=== PATIENT | female | born 1955 | race Caucasian/White ===

== ENCOUNTER 2019-05-11 05:02 | Inpatient (IN) | payer MEDICARE, MEDICAID ==
[~2019-05-11] VITALS: Ht 165.4 cm; Wt 66.7 kg
[2019-05-11] MEDS ORDERED: NS IV 1000 ML 1,000 ML IV SCH ×2 (05:29→08:30)
--- NOTE | 2019-05-11 05:29 | ED Back Pain ---
General Chief Complaint: Back Problems Stated Complaint: LOWER BACK PAIN Nursing Triage Note: left flank pain for 2 days, diagnosed in clinic yesterday with uti and started on antibiotics Nursing Sepsis Screen: No Definite Risk Source of Information: Patient, Family (daughter) Exam Limitations: No Limitations History of Present Illness Date Seen by Provider: May 11, 2019 Time Seen by Provider: 05:15 Initial Comments Patient presents to ER by private conveyance with chief complaint 4 days of left flank and lower left quadrant abdominal pain that is sharp, severe and unrelenting. It is uncomfortable to lay down. She is having nausea and vomiting. No fever but she is having chills. She's having no hematuria or dysuria. Many years ago she had a UTI. She went to her primary care doctor's office and a urinalysis demonstrated no blood but there was bacteria so they put her on Bactrim for 1 day and told her if her pain persisted despite a couple days of antibiotics they would look for a kidney stone. She has no history of kidney stones. She says the pain is intolerable and she has not taken anything for because of a history of high blood pressure. She has a history of emergency C- section many years ago. No other abdominal surgeries. No diarrhea or bloody stools. Allergies and Home Medications Allergies Coded Allergies: Penicillins (Verified Allergy, Unknown, 05/11/19) Patient Home Medication List Home Medication List Reviewed: Yes Review of Systems Constitutional: No chills, No fever, No malaise EENTM: No ear discharge, No ear pain Respiratory: No cough, No short of breath Cardiovascular: No chest pain, No edema Gastrointestinal: LLQ, see HPI (left flank), abdominal pain, nausea, vomiting Genitourinary: No decreased output, No discharge, No dysuria, No frequency Control/STD Prophylaxis: None Musculoskeletal: see HPI, back pain; No joint pain All Other Systems Reviewed Negative Unless Noted: Yes Past Imlurez-Qcbufd-Vpyasf Hx Patient Social History Alcohol Use: Denies Use Recreational Drug Use: No Smoking Status: Current Everyday Smoker Type Used: Cigarettes 2nd Hand Smoke Exposure: No Recent Foreign Travel: No Contact w/Someone Who Travel: No Recent Infectious Disease Expo: No Recent Hopitalizations: No Physical Abuse: No Sexual Abuse: No Mistreated: No Fear: No Seasonal Allergies Seasonal Allergies: No Past Medical History Surgeries: No Respiratory: No Cardiac: Yes Hypertension Neurological: No Genitourinary: Yes Kidney Infection Gastrointestinal: No Musculoskeletal: No Endocrine: No HEENT: No Cancer: No Psychosocial: No Integumentary: No Blood Disorders: No Physical Exam Vital Signs Vital Signs - First Documented 05/11/19 05:18 Temp 35.9 Pulse 86 Resp 16 B/P (MAP) 115/71 (86) Pulse Ox 99 O2 Delivery Room Air Capillary Refill : Less Than 3 Seconds Height, Weight, BMI Height: '" Weight: lbs. oz. kg; 23.00 BMI Method: General Appearance: WD/WN, Mild Distress HEENT: PERRL/EOMI, Pharynx Normal; No Moist Mucous Membranes Neck: Full Range of Motion, Normal Inspection Cardiovascular: Regular Rate, Rhythm, Normal Peripheral Pulses Respiratory: No Accessory Muscle Use, No Respiratory Distress Peripheral Pulses: 2+ Radial Pulses (R), 2+ Radial Pulses (L) Gastrointestinal: Non Tender, Soft Back: No CVA Tenderness, No Vertebral Tenderness Extremity: Normal Capillary Refill, Normal Inspection, No Pedal Edema Neurologic/Psychiatric: Alert, Oriented x3 Skin: Normal Color, Warm/Dry; No Rash Progress/Results/Core Measures Results/Orders Lab Results Laboratory Tests Test 05/11/19 05:45 05/11/19 05:52 05/11/19 07:22 Range/Units White Blood Count 9.3 4.3-11.0 10^3/uL Red Blood Count 4.73 4.35-5.85 10^6/uL Hemoglobin 14.9 11.5-16.0 G/DL Hematocrit 42 35-52 % Mean Corpuscular Volume 89 80-99 FL Mean Corpuscular Hemoglobin 32 25-34 PG Mean Corpuscular Hemoglobin Concent 35 32-36 G/DL Red Cell Distribution Width 11.7 10.0-14.5 % Platelet Count 318 130-400 10^3/uL Mean Platelet Volume 8.5 7.4-10.4 FL Neutrophils (%) (Auto) 76 H 42-75 % Lymphocytes (%) (Auto) 14 12-44 % Monocytes (%) (Auto) 7 0-12 % Eosinophils (%) (Auto) 2 0-10 % Basophils (%) (Auto) 1 0-10 % Neutrophils # (Auto) 7.1 1.8-7.8 X 10^3 Lymphocytes # (Auto) 1.3 1.0-4.0 X 10^3 Monocytes # (Auto) 0.7 0.0-1.0 X 10^3 Eosinophils # (Auto) 0.2 0.0-0.3 10^3/uL Basophils # (Auto) 0.1 0.0-0.1 10^3/uL Sodium Level 124 *L 127 L 135-145 MMOL/L Potassium Level 3.8 3.9 3.6-5.0 MMOL/L Chloride Level 88 L 92 L 98-107 MMOL/L Carbon Dioxide Level 23 24 21-32 MMOL/L Anion Gap 13 11 5-14 MMOL/L Blood Urea Nitrogen 12 11 7-18 MG/DL Creatinine 0.98 0.96 0.60-1.30 MG/DL Estimat Glomerular Filtration Rate 57 58 BUN/Creatinine Ratio 110 11 Glucose Level 110 H 112 H 70-105 MG/DL Calcium Level 9.8 8.7 8.5-10.1 MG/DL Corrected Calcium 9.7 8.5-10.1 MG/DL Total Bilirubin 0.3 0.1-1.0 MG/DL Aspartate Amino Transf (AST/SGOT) 19 5-34 U/L Alanine Aminotransferase (ALT/SGPT) 10 0-55 U/L Alkaline Phosphatase 64 40-136 U/L Total Protein 7.1 6.4-8.2 GM/DL Albumin 4.1 3.2-4.5 GM/DL Urine Color YELLOW Urine Clarity CLEAR Urine pH 7.0 5-9 Urine Specific [place] 1.010 L 1.016-1.022 Urine Protein NEGATIVE NEGATIVE Urine Glucose (UA) NEGATIVE NEGATIVE Urine Ketones NEGATIVE NEGATIVE Urine Nitrite NEGATIVE NEGATIVE Urine Bilirubin NEGATIVE NEGATIVE Urine Urobilinogen 0.2 < = 1.0 MG/DL Urine Leukocyte Esterase NEGATIVE NEGATIVE Urine RBC (Auto) NEGATIVE NEGATIVE Urine RBC NONE /HPF Urine WBC NONE /HPF Urine Squamous Epithelial Cells NONE /HPF Urine Crystals PRESENT H /LPF Urine Amorphous Sediment FEW JUNAID PHOSPHATE H /LPF Urine Bacteria NEGATIVE /HPF Urine Casts NONE /LPF Urine Mucus NONE /LPF Urine Culture Indicated NO Serum Alcohol < 10 <10 MG/DL My Orders Orders - KIKE JACKSON Ua Culture If Indicated (05/11/19 05:22) Ed Iv/Invasive Line Start (05/11/19 05:29) Ns Iv 1000 Ml (Sodium Chloride 0.9%) (05/11/19 05:29) Ct Abd/Pelvis Wo(Kidney Stone) (05/11/19 05:29) Cbc With Automated Diff (05/11/19 05:29) Comprehensive Metabolic Panel (05/11/19 05:29) Ondansetron Injection (Zofran Injectio (05/11/19 05:30) Fentanyl Injection (Sublimaze Injection (05/11/19 05:30) Promethazine Injection (Phenergan Injec (05/11/19 06:15) Promethazine Injection (Phenergan Injec (05/11/19 06:07) Ketorolac Injection (Toradol Injection) (05/11/19 06:45) Ns Iv 500 Ml (Sodium Chloride 0.9%) (05/11/19 06:45) Basic Metabolic Panel (05/11/19 07:06) Ct Head Wo (05/11/19 07:06) Chest 1 View Ap/Pa Only (05/11/19 07:09) Sodium Urine Random (05/11/19 07:21) Creatinine,Urine (05/11/19 07:21) Alcohol (05/11/19 07:31) Osmolality Serum (05/11/19 07:31) Ct Angio Abdomen/Pelv W (05/11/19 07:37) Iohexol Injection (Omnipaque 350 Mg/Ml 1 (05/11/19 07:45) Received Contrast (Hold Metformin- Contr (05/11/19 07:45) Sodium Chloride Flush (Catheter Flush Sy (05/11/19 07:45) Ns (Ivpb) (Sodium Chloride 0.9% Ivpb Bag (05/11/19 07:45) Pantoprazole Injection (Protonix Injecti (05/11/19 08:00) Sodium Chloride 3% (Hypertonic Sodium Ch (05/11/19 08:00) Ns Iv 1000 Ml (Sodium Chloride 0.9%) (05/11/19 08:30) Medications Given in ED Current Medications Medications Dose Ordered Sig/Kathya Route Start Time Stop Time Status Last Admin Dose Admin Fentanyl Citrate 50 mcg ONCE ONCE IVP 05/11/19 05:30 05/11/19 05:31 DC 05/11/19 05:40 50 MCG Iohexol 100 ml ONCE ONCE IV 05/11/19 07:45 05/11/19 07:46 DC 05/11/19 08:06 100 ML Ketorolac Tromethamine 30 mg ONCE ONCE IVP 05/11/19 06:45 05/11/19 06:46 DC 05/11/19 06:43 30 MG Ondansetron HCl 4 mg ONCE ONCE IVP 05/11/19 05:30 05/11/19 05:31 DC 05/11/19 05:40 4 MG Pantoprazole 40 mg ONCE ONCE IV 05/11/19 08:00 05/11/19 08:01 DC 05/11/19 08:10 40 MG Promethazine HCl 25 mg ONCE ONCE IVP 05/11/19 06:15 05/11/19 06:16 DC 05/11/19 06:13 25 MG Sodium Chloride 10 ml NEEDED PRN IV 05/11/19 07:45 05/11/19 08:06 10 ML Sodium Chloride 100 ml ONCE ONCE IV 05/11/19 07:45 05/11/19 07:46 DC 05/11/19 08:06 100 ML Vital Signs/I&O 05/11/19 05:18 Temp 35.9 Pulse 86 Resp 16 B/P (MAP) 115/71 (86) Pulse Ox 99 O2 Delivery Room Air Blood Pressure Mean: 86 Progress Progress Note #1: Time: 05:32 Progress Note Patient is very uncomfortable and rocking like a kidney stone. She does not have any costovertebral tenderness to percussion nor does she have any significant abdominal discomfort to palpation however she rates her pain as severe. Plan to give her 50 g of fentanyl and 4 mg Zofran for her symptoms as well as a liter of saline as she does appear clinically dry. Plan to check labs before giving NSAIDs. We'll obtain a noncontrasted CT scan of the abdomen and pelvis to rule out kidney stones. Other possibilities include organic back pain. She is not exhibiting any rash like shingles. Urinalysis. Progress Note #2: Time: 07:07 Progress Note Patient's sodium is moderate to severely low at 124. She denies having history of low sodium. She's not on hydrochlorothiazide or other diuretics. I suspect that it is probably acute related to her vomiting and abdominal pain. She still having mild nausea. She has only vomited once after receiving the fentanyl and not since Phenergan. She's received 1500 cc of normal saline. Plan to recheck the BMP see with sodium level is before we would consider administering hypertonic saline. Plan to get a CT of the head to rule out space-occupying lesion. CXR for mass. We have discussed inpatient management of hyponatremia and she agrees. Her BP is soft so we instructed her not to take her lisinopril. Plan to get a urine sodium and urine creatinine. Her initial urine was very dilute. Serum osmolality and alcohol ordered but these will be sent out to [place]. In-house radiology read claims thickened gastric lining and duodenum. Some concern for possible atherosclerotic, vascular insult. They recommend CT angiogram. We can obtain that before she goes. Pantoprazole 40 mg IV for her abdominal distress. Progress Note #3: Time: 08:15 Progress Note We did not apparently have any hypertonic saline so we'll just run normal saline at 100 cc an hour. Diagnostic Imaging Diagonstic Imaging: CT (without IV contrast, kidney stone study) Plain Films/CT/US/NM/MRI: abdomen, pelvis Comments Bilateral nonobstructing 2 mm renal calculi. [facility], [place] NAME: CLARA RAY ROMERO [facility] REC#: [id number] PT STATUS: REG ER : 1955 PHYSICIAN: KIKE JACKSON MD ADMIT DATE: 05/11/19/ER FS Signed Date of Exam:05/11/19 CT ABD/PELVIS WO(KIDNEY STONE) PROCEDURE: CT urinary tract, rule out kidney stone. TECHNIQUE: Multiple contiguous axial images were obtained through the abdomen and pelvis without the use of intravenous contrast. Auto Exposure Controls were utilized during the CT exam to meet ALARA standards for radiation dose reduction. INDICATION: Flank pain and abdominal pain. COMPARISON: None. FINDINGS: There is some mild gastric distention. There is some vvrh-or-vgblehly bowel wall thickening involving the duodenum and proximal small bowel. The bowel does not appear dilated. There is no free air, free fluid or lymphadenopathy. The course and caliber of the colon and distal small bowel is unremarkable. Lung bases are clear. The gallbladder and solid organs are grossly unremarkable. Bilateral renal cysts are present. There is no hydronephrosis or hydroureter. Single nonobstructive stone is seen in the mid aspect of the left kidney measuring 3 mm. Distal ureters and urinary bladder normal. Uterus is intact. The appendix is normal. No hernia identified. Osseous structures are age-appropriate. There is advanced degenerative changes in the lumbar spine. IMPRESSION: 1. Nonspecific gastric distention with thickening of the duodenum and proximal small bowel possibly inflammatory bowel disease. There is some mild atherosclerotic change of the abdominal aorta. However, the origins of the celiac and SMA appear unremarkable. Doubtful this represents a vascular insult but not excluded. Consider postcontrast imaging using CTA technique. 2. Bilateral renal cysts. 3. No free air, free fluid or abscess. Dictated by: Dictated on workstation # [id number] Dict: 05/11/19700 Trans: 05/11/19726 [id number] Interpreted by: ALEXSANDRA WELSH Electronically signed by: ALEXSANDRA WELSH 05/11/19726 Reviewed: Reviewed Night Elver Study, Reviewed by Hi Diagonstic Imaging: CT (noncontrast) Plain Films/CT/US/NM/MRI: head Comments No acute intracranial pathology, mass effect, midline shift, tumor, hemorrhage or fracture. NAME: CLARA RAY [facility] REC#: [id number] PT STATUS: REG ER : 1955 PHYSICIAN: KIKE JACKSON MD ADMIT DATE: 05/11/19/ER FS Signed Date of Exam:05/11/19 CT HEAD WO PROCEDURE: CT head without contrast. TECHNIQUE: Multiple contiguous axial images were obtained through the brain without the use of intravenous contrast. Auto Exposure Controls were utilized during the CT exam to meet ALARA standards for radiation dose reduction. INDICATION: Dizziness and hypotension. COMPARISON: None. FINDINGS: There is mild age related cerebral volume loss and chronic microvascular changes. There is no focus of acute ischemia or hemorrhage. No extra-axial fluid collection is identified. There is no mass. The bony calvarium paranasal sinuses and mastoids are clear. IMPRESSION: No acute intracranial abnormalities. Dictated by: Dictated on workstation # [id number] Dict: 05/11/19724 Trans: 05/11/19725 [facility] [id number] Interpreted by: ALEXSANDRA WELSH Electronically signed by: ALEXSANDRA WELSH 05/11/19725 Reviewed: Reviewed Night Elver Study, Reviewed by Diagonstic Imaging: Xray Plain Films/CT/US/NM/MRI: chest (1v) Comments Unremarkable one view chest. Pending radiology over read. [facility] [place] NAME: CLARA RAY [facility] REC#: [id number] PT STATUS: REG ER : 1955 PHYSICIAN: KIKE JACKSON MD ADMIT DATE: 05/11/19/ER FS Signed Date of Exam:05/11/19 CHEST 1 VIEW AP/PA ONLY Indication: Hypotension. Dizziness. COMPARISON: None. FINDINGS: The heart size is normal. There is no pneumothorax effusion or infiltrate. The lungs are clear. Osseous structures normal. IMPRESSION: Negative chest. Dictated by: Dictated on workstation # [id number] Dict: 05/11/19727 Trans: 05/11/19727 [facility] [id number] Interpreted by: ALEXSANDRA WELSH Electronically signed by: ALEXSANDRA WELSH 05/11/19727 Reviewed: Reviewed by Diagonstic Imaging: CT (angiogram) Plain Films/CT/US/NM/MRI: abdomen, pelvis Comments Abdominal aorta and SMA appear patent with some atherosclerotic changes. Benign- appearing right renal cyst on the superior pole. Thickened appearance to the stomach and duodenum. No appearance of thromboembolism in the visceral arteries. Scoliosis with moderate chronic degenerative changes of the thoracic vertebral spine. Pending radiology over read. Reviewed: Reviewed by Me Departure Communication (Admissions) Time/Spoke to Admitting Phy: 08:05 Discussed case lab, imaging and progress with Dr. Abraham and she agrees to accept the patient to the medical floor. Impression Primary Impression: Acute hyponatremia Additional Impressions: Acute abdominal pain in left flank Multiple renal calculi Disposition: ADMITTED INPATIENT Condition: Stable Admissions Decision to Admit Reason: Admit from ER (General) Decision to Admit/Date: May 11, 2019 Time/Decision to Admit Time: 07:00 Departure-Patient Inst. Referrals: HANY RODRIGUEZ MD (PCP/Family) Primary Care Physician KIKE JACKSON May 11, 2019 05:29
[2019-05-11] MEDS ORDERED: ONDANSETRON 4 MG/2 ML (SDV) Z0FRAN IVP ONE (05:30)
[2019-05-11] MEDS ORDERED: fentaNYL INJECTION 100 MCG/2 ML AMP IVP ONE (05:30)
[2019-05-11 05:58] LABS: EOSINOPHILS % (AUTO) 2 % (0-10); HEMATOCRIT 42 % (35-52); HEMOGLOBIN 14.9 G/DL (11.5-16.0); LYMPHOCYTES % (AUTO) 14 % (12-44); MEAN CORPUSCULAR HEMOGLOBIN 32 PG (25-34); MEAN CORPUSCULAR HGB CONC 35 G/DL (32-36); MEAN CORPUSCULAR VOLUME 89 FL (80-99); MEAN PLATELET VOLUME 8.5 FL (7.4-10.4); MONOCYTES % (AUTO) 7 % (0-12); NEUTROPHILS % (AUTO) 76 % (42-75); PLATELET COUNT 318 10^3/uL (130-400); RED CELL DISTRIBUTION WIDTH 11.7 % (10.0-14.5); WHITE BLOOD COUNT 9.3 10^3/uL (4.3-11.0)
[2019-05-11 05:59] LABS: BASOPHILS # (AUTO) 0.1 10^3/uL (0.0-0.1); BASOPHILS % (AUTO) 1 % (0-10); EOSINOPHILS # (AUTO) 0.2 10^3/uL (0.0-0.3); LYMPHOCYTES # (AUTO) 1.3 X 10^3 (1.0-4.0); MONOCYTES # (AUTO) 0.7 X 10^3 (0.0-1.0); NEUTROPHILS # (AUTO) 7.1 X 10^3 (1.8-7.8)
[2019-05-11 06:06] LABS: BACTERIA,URINE NEGATIVE /HPF; BILIRUBIN,URINE NEGATIVE (NEGATIVE); CLARITY,URINE CLEAR; COLOR,URINE YELLOW; GLUCOSE, URINE (UA) NEGATIVE (NEGATIVE); KETONES,URINE NEGATIVE (NEGATIVE); LEUKOCYTE ESTERASE ,URINE NEGATIVE (NEGATIVE); NITRITE,URINE NEGATIVE (NEGATIVE); PROTEIN,URINE NEGATIVE (NEGATIVE)
[2019-05-11 06:07] LABS: AMORPHOUS SEDIMENT,UR FEW AMOR PHOSPHATE /LPF
[2019-05-11] MEDS ORDERED: PROMETHAZINE INJ 25 MG/ML (PHENERGAN) AMP ONE (06:07)
[2019-05-11] MEDS ORDERED: PROMETHAZINE INJ 25 MG/ML (PHENERGAN) AMP IVP ONE (06:15)
[2019-05-11 06:20] LABS: BILIRUBIN,TOTAL 0.3 MG/DL (0.1-1.0); CALCIUM 9.8 MG/DL (8.5-10.1); CREATININE SERUM 0.98 MG/DL (0.60-1.30)
[2019-05-11 06:21] LABS: ALBUMIN 4.1 GM/DL (3.2-4.5); TOTAL PROTEIN 7.1 GM/DL (6.4-8.2)
[2019-05-11 06:28] LABS: POTASSIUM 3.8 MMOL/L (3.6-5.0)
--- NOTE | 2019-05-11 06:30 | NUR ---
pt laying on the floor because she is hot, asked pt if we could help her to the bed and pt refused.
[2019-05-11] MEDS ORDERED: NS IV 500 ML 500 ML IV SCH (06:45)
[2019-05-11] MEDS ORDERED: KETOROLAC 30 MG/ML VIAL IVP ONE (06:45)
--- NOTE | 2019-05-11 07:11 | Diagnostic Imaging Report ---
PROCEDURE: CT urinary tract, rule out kidney stone. TECHNIQUE: Multiple contiguous axial images were obtained through the abdomen and pelvis without the use of intravenous contrast. Auto Exposure Controls were utilized during the CT exam to meet ALARA standards for radiation dose reduction. INDICATION: Flank pain and abdominal pain. COMPARISON: None. FINDINGS: There is some mild gastric distention. There is some zjtc-ro-dndgobia bowel wall thickening involving the duodenum and proximal small bowel. The bowel does not appear dilated. There is no free air, free fluid or lymphadenopathy. The course and caliber of the colon and distal small bowel is unremarkable. Lung bases are clear. The gallbladder and solid organs are grossly unremarkable. Bilateral renal cysts are present. There is no hydronephrosis or hydroureter. Single nonobstructive stone is seen in the mid aspect of the left kidney measuring 3 mm. Distal ureters and urinary bladder normal. Uterus is intact. The appendix is normal. No hernia identified. Osseous structures are age-appropriate. There is advanced degenerative changes in the lumbar spine. IMPRESSION: 1. Nonspecific gastric distention with thickening of the duodenum and proximal small bowel possibly inflammatory bowel disease. There is some mild atherosclerotic change of the abdominal aorta. However, the origins of the celiac and SMA appear unremarkable. Doubtful this represents a vascular insult but not excluded. Consider postcontrast imaging using CTA technique. 2. Bilateral renal cysts. 3. No free air, free fluid or abscess. Dictated by: Dictated on workstation # [id number]
--- NOTE | 2019-05-11 07:28 | Diagnostic Imaging Report ---
PROCEDURE: CT head without contrast. TECHNIQUE: Multiple contiguous axial images were obtained through the brain without the use of intravenous contrast. Auto Exposure Controls were utilized during the CT exam to meet ALARA standards for radiation dose reduction. INDICATION: Dizziness and hypotension. COMPARISON: None. FINDINGS: There is mild age related cerebral volume loss and chronic microvascular changes. There is no focus of acute ischemia or hemorrhage. No extra-axial fluid collection is identified. There is no mass. The bony calvarium paranasal sinuses and mastoids are clear. IMPRESSION: No acute intracranial abnormalities. Dictated by: Dictated on workstation # [id number]
--- NOTE | 2019-05-11 07:30 | Diagnostic Imaging Report ---
Indication: Hypotension. Dizziness. COMPARISON: None. FINDINGS: The heart size is normal. There is no pneumothorax effusion or infiltrate. The lungs are clear. Osseous structures normal. IMPRESSION: Negative chest. Dictated by: Dictated on workstation # [id number]
[2019-05-11] MEDS ORDERED: CATHETER FLUSH 10 ML SYR IV PRN ×2 (07:45→10:30)
[2019-05-11] MEDS ORDERED: NS 100 ML (IVPB) BAG IV ONE (07:45)
[2019-05-11] MEDS ORDERED: IOHEXOL 350 MG/ML 100 ML (OMNIPAQUE 350) VIAL IV ONE (07:45)
[2019-05-11] MEDS ORDERED: HOLD METFORMIN - RECEIVED CONTRAST 20 ML VIAL IV SCH (07:45)
[2019-05-11 07:57] LABS: CALCIUM 8.7 MG/DL (8.5-10.1); CREATININE SERUM 0.96 MG/DL (0.60-1.30); POTASSIUM 3.9 MMOL/L (3.6-5.0)
[2019-05-11] MEDS ORDERED: SODIUM CHLORIDE 3% 500 ML IV ONE (08:00)
[2019-05-11] MEDS ORDERED: PANTOPRAZOLE 40 MG (PROTONIX) VIAL IV ONE (08:00)
--- NOTE | 2019-05-11 08:52 | Diagnostic Imaging Report ---
PROCEDURE: CT angiography abdomen and pelvis with intravenous contrast. TECHNIQUE: Multiple contiguous axial images were obtained through the abdomen and pelvis after the uneventful bolus administration of intravenous contrast. Sagittal and coronal MIP reconstructions with then performed. DATE: May 11, 2019. COMPARISON: CT abdomen and pelvis without contrast May 11, 2019. INDICATION: 63-year-old female, atherosclerotic disease and evaluation for arterial patency. Abdominal pain. FINDINGS: The visualized portions of the lung bases are clear. The heart is not enlarged. There is no identified pericardial effusion. There are atherosclerotic calcifications. The celiac axis is widely patent. The superior mesenteric artery is widely patent. The right renal artery is widely patent. There is atherosclerotic disease involving the proximal aspect of the left renal artery. There is visually estimated 50% narrowing of the origin of the left renal artery. There are 2 left renal arteries present. The inferior mesenteric artery is patent. The abdominal aorta is normal in caliber. There is no identified arterial occlusion within the included field of view of imaging. There is no evidence of aortic dissection. The liver is unremarkable in size and contour. There is no identified liver lesion. The main, right, and left portal veins are patent. The gallbladder is unremarkable. There is no intrahepatic or extrahepatic bile duct dilation. The main pancreatic duct is not abnormally dilated. Unremarkable appearance of the pancreatic parenchyma. The spleen is normal in size. The adrenal glands are unremarkable. There are multiple bilateral low-attenuation renal lesions. There is a low-attenuation lesion in the right kidney on axial image 73 which measures 1.4 cm in size which has an internal attenuation measurement of 40 Hounsfield units. This measures approximately 26 Hounsfield units on earlier noncontrast examination. This is an indeterminate amount of contrast enhancement. This lesion cannot be definitively characterized as a benign cyst. The additional low-attenuation renal lesions are consistent with benign cysts. The urinary collecting systems are not distended. There is no identified renal or ureteral stone. The urinary bladder is unremarkable. There is mucosal enhancement and mild wall thickening at the level of the distal sigmoid colon. There is additional mild wall thickening of the more proximal aspect of the sigmoid colon. There is somewhat prominent mucosal enhancement of the stomach and very mild wall thickening of the distal stomach. There is wall thickening of the duodenum. There is no pneumatosis. There is no portal venous gas. There is no free intraperitoneal air. There is no drainable fluid collection. There is no identified abnormally enlarged lymph node in the abdomen or pelvis which meets CT size criteria for adenopathy. There are multilevel severe degenerative changes of the spine. There is no identified acute bony abnormality. IMPRESSION: CT ABDOMEN AND PELVIS. 1. Atherosclerotic disease without arterial occlusion. There is approximately 50% narrowing of the origin of the most proximally located left renal artery. There are 2 left renal arteries present. 2. Mild wall thickening of the distal stomach with somewhat prominent mucosal enhancement of the stomach, duodenal wall thickening, and abnormal wall thickening of the sigmoid colon. This potentially could relate to a multifocal infectious or inflammatory gastritis, duodenitis, and/or colitis. No evidence of ischemic colitis. 3. Technically indeterminate right renal lesion measuring 1.4 cm in size. Dictated by: Dictated on workstation # [id number]
[2019-05-11] MEDS ORDERED: HYDROcodone/APAP 5 MG/325 MG (LORTAB) TAB PO ONE (09:15)
--- NOTE | 2019-05-11 09:27 | NUR ---
Report from Reina. RN at this time. This RN will assume care of this patient when she arrives to this floor
[2019-05-11 10:00] VITALS: BP 110/69
[2019-05-11] MEDS ORDERED: fentaNYL INJECTION 100 MCG/2 ML AMP IV PRN (10:30)
[2019-05-11] MEDS ORDERED: KETOROLAC 15 MG/ML VIAL IV PRN (10:30)
[2019-05-11] MEDS ORDERED: HYDROcodone/APAP 5 MG/325 MG (LORTAB) TAB PO PRN (10:30)
[2019-05-11] MEDS ORDERED: ACETAMINOPHEN 325 MG TABLET PO PRN (10:30)
[2019-05-11] MEDS ORDERED: PANTOPRAZOLE 40 MG (PROTONIX) TAB PO SCH (10:30)
[2019-05-11] MEDS ORDERED: ONDANSETRON 4 MG/2 ML (SDV) Z0FRAN IV PRN (10:30)
[2019-05-11] MEDS ORDERED: PROMETHAZINE INJ 25 MG/ML (PHENERGAN) AMP IV PRN (10:30)
[2019-05-11] MEDS ORDERED: KETO5DRO14 OU (11:16)
[2019-05-11] MEDS ORDERED: ACET-2267 PO (11:16)
[2019-05-11] MEDS ORDERED: SULF1TAB35 PO (11:16)
[2019-05-11] MEDS ORDERED: IBUP-30 PO (11:16)
[2019-05-11] MEDS ORDERED: LISI-552 PO (11:16)
--- NOTE | 2019-05-11 11:16 | NUR ---
PATIENT HAD HER PRESCRIPTION MEDICATION BOTTLES HERE WITH HER. WE WENT OVER HOW SHE TAKES THEM. SHE TAKES TYLENOL AND 1 ADVIL OTC PRN. BOTTLES SHE HAS WITH HER FROM [facility] IN [place]: 05-10-19 SEPTRA DS BID #6 04-24-19 KETOROLAC 0.5% DROPS 1 DROP OU QID X 30 DAYS 04-20-19 LISINOPRIL 20MG DAILY #30
--- NOTE | 2019-05-11 11:24 | History & Physical ---
HPI History of Present Illness: Left back pain from flank to low back, starting Wednesday. Went to clinic yesterday and had UA negative for blood but with some bacteria, got antibiotics which she started, but early this am around 3, she was having severe enough pain to go to the ER. Was slightly naseous during that time but hadn't vomited until she got fentanyl here. Fentanyl did help with pain, but she is bothered by the vomiting and she also felt dizzy. Hydrocodone didn't seem to help. Denies fever. Source: patient, family Date seen by provider: May 11, 2019 Time Seen by Provider: 11:21 Attending Physician Shilpa Abraham MD PCP Nelson Mendez MD Consult Date of Admission May 11, 2019 at 08:19 Home Medications Home Medications Reviewed patient Home Medication Reconciliation performed by pharmacy medication reconciliations community service technician and/or nursing. Patients Allergies have been reviewed. Allergies Coded Allergies: Penicillins (Verified Allergy, Unknown, 05/11/19) [id number] Hx Patient Social History Alcohol Use: Denies Use Recreational Drug Use: No Smoking Status: Current Everyday Smoker Type Used: Cigarettes 2nd Hand Smoke Exposure: No Recent Foreign Travel: No Contact w/other who traveled: No Recent Hopitalizations: No Recent Infectious Disease Expo: No Past Medical History PMHx: HTN Retinal hemorrhages/macular degeneration Chronic sinusitis SurgHx: Tonsillectomy C section Family Medical History Significant Family History: Asthma Review of Systems ([facility]) Constitutional: dizziness; No fever; malaise EENTM: nose congestion Respiratory: cough (mild); No short of breath Cardiovascular: No chest pain Gastrointestinal: No abdominal pain, No constipation; diarrhea (loose since Wednesday), nausea, vomiting Genitourinary: No dysuria Musculoskeletal: see HPI Skin: No rash Reviewed Test Results Reviewed Test Results Lab Laboratory Tests Test 05/11/19 05:45 05/11/19 05:52 05/11/19 07:22 05/11/19 10:35 Range/Units White Blood Count 9.3 4.3-11.0 10^3/uL Red Blood Count 4.73 4.35-5.85 10^6/uL Hemoglobin 14.9 11.5-16.0 G/DL Hematocrit 42 35-52 % Mean Corpuscular Volume 89 80-99 FL Mean Corpuscular Hemoglobin 32 25-34 PG Mean Corpuscular Hemoglobin Concent 35 32-36 G/DL Red Cell Distribution Width 11.7 10.0-14.5 % Platelet Count 318 130-400 10^3/uL Mean Platelet Volume 8.5 7.4-10.4 FL Neutrophils (%) (Auto) 76 H 42-75 % Lymphocytes (%) (Auto) 14 12-44 % Monocytes (%) (Auto) 7 0-12 % Eosinophils (%) (Auto) 2 0-10 % Basophils (%) (Auto) 1 0-10 % Neutrophils # (Auto) 7.1 1.8-7.8 X 10^3 Lymphocytes # (Auto) 1.3 1.0-4.0 X 10^3 Monocytes # (Auto) 0.7 0.0-1.0 X 10^3 Eosinophils # (Auto) 0.2 0.0-0.3 10^3/uL Basophils # (Auto) 0.1 0.0-0.1 10^3/uL Sodium Level 124 *L 127 L 125 *L 135-145 MMOL/L Potassium Level 3.8 3.9 3.6-5.0 MMOL/L Chloride Level 88 L 92 L 98-107 MMOL/L Carbon Dioxide Level 23 24 21-32 MMOL/L Anion Gap 13 11 5-14 MMOL/L Blood Urea Nitrogen 12 11 7-18 MG/DL Creatinine 0.98 0.96 0.60-1.30 MG/DL Estimat Glomerular Filtration Rate 57 58 BUN/Creatinine Ratio 110 11 Glucose Level 110 H 112 H 70-105 MG/DL Calcium Level 9.8 8.7 8.5-10.1 MG/DL Corrected Calcium 9.7 8.5-10.1 MG/DL Total Bilirubin 0.3 0.1-1.0 MG/DL Aspartate Amino Transf (AST/SGOT) 19 5-34 U/L Alanine Aminotransferase (ALT/SGPT) 10 0-55 U/L Alkaline Phosphatase 64 40-136 U/L Total Protein 7.1 6.4-8.2 GM/DL Albumin 4.1 3.2-4.5 GM/DL Urine Color YELLOW Urine Clarity CLEAR Urine pH 7.0 5-9 Urine Specific [place] 1.010 L 1.016-1.022 Urine Protein NEGATIVE NEGATIVE Urine Glucose (UA) NEGATIVE NEGATIVE Urine Ketones NEGATIVE NEGATIVE Urine Nitrite NEGATIVE NEGATIVE Urine Bilirubin NEGATIVE NEGATIVE Urine Urobilinogen 0.2 < = 1.0 MG/DL Urine Leukocyte Esterase NEGATIVE NEGATIVE Urine RBC (Auto) NEGATIVE NEGATIVE Urine RBC NONE /HPF Urine WBC NONE /HPF Urine Squamous Epithelial Cells NONE /HPF Urine Crystals PRESENT H /LPF Urine Amorphous Sediment FEW JUNAID PHOSPHATE H /LPF Urine Bacteria NEGATIVE /HPF Urine Casts NONE /LPF Urine Mucus NONE /LPF Urine Culture Indicated NO Serum Alcohol < 10 <10 MG/DL Radiology CT abdomen: IMPRESSION: 1. Nonspecific gastric distention with thickening of the duodenum and proximal small bowel possibly inflammatory bowel disease. There is some mild atherosclerotic change of the abdominal aorta. However, the origins of the celiac and SMA appear unremarkable. Doubtful this represents a vascular insult but not excluded. Consider postcontrast imaging using CTA technique. 2. Bilateral renal cysts. 3. No free air, free fluid or abscess. CTA abdomen: IMPRESSION: CT ABDOMEN AND PELVIS. 1. Atherosclerotic disease without arterial occlusion. There is approximately 50% narrowing of the origin of the most proximally located left renal artery. There are 2 left renal arteries present. 2. Mild wall thickening of the distal stomach with somewhat prominent mucosal enhancement of the stomach, duodenal wall thickening, and abnormal wall thickening of the sigmoid colon. This potentially could relate to a multifocal infectious or inflammatory gastritis, duodenitis, and/or colitis. No evidence of ischemic colitis. 3. Technically indeterminate right renal lesion measuring 1.[address] head: No acute intracranial abnormalities CXR: No acute abnormalities Physical Exam-([facility]) Physical Exam Vital Signs VS - Last 72 Hours, by Label 05/11/19 05/11/19 05/11/19 05/11/19 05:18 09:15 10:00 12:00 Temp 35.9 35.9 35.9 36.0 Pulse 86 84 84 72 Resp 16 16 16 18 B/P (MAP) 115/71 (86) 110/69 (86) 110/69 116/74 (88) Pulse Ox 99 99 99 98 O2 Delivery Room Air Room Air Room Air Nasal Cannula 05/11/19 14:13 Pulse Ox 99 O2 Delivery Room Air Capillary Refill : Less Than 3 Seconds General Appearance: mild distress (appears in pain) Respiratory: lungs clear, normal breath sounds, no respiratory distress Cardiovascular: regular rate, rhythm, no murmur Gastrointestinal: normal bowel sounds, non tender, soft Neurologic/Psychiatric: alert, normal mood/affect Skin: normal color, warm/dry Assessment/Plan Assessment/Plan Admission Status: Inpatient Order (span 2 midnights) Reason for Inpatient Admission: Marked hyponatremia requiring replacement and work-up. (1) Colitis Status: Acute Assessment & Plan: Suspect given loose stools and CT findings, will start cipro/flagyl. (2) Acute abdominal pain in left flank Status: Acute Assessment & Plan: CT abdomen without clear explanation, possibly related to colitis. Fentanyl made her sick, will try morphine. (3) Acute hyponatremia Status: Acute Assessment & Plan: Unclear after further discussion whether acute- family notes that she had been recommended low salt diet in October when dx with HTN and she has eliminated salt altogether. Asymptomatic, will not use further hypertonic saline for now. Serum osmolality, urine osmolality and sodium pending. CXR and CT head okay. (4) DVT prophylaxis Status: Acute Assessment & Plan: Enoxaparin Clinical Quality Measures DVT/VTE Risk/Contraindication: Risk Factor Score Per Nursin RFS Level Per Nursing on Admit: 4+=Very High SHILPA ABRAHAM MD May 11, 2019 11:24
[2019-05-11 12:00] VITALS: BP 116/74
[2019-05-11 16:00] VITALS: BP 110/70
[2019-05-11] MEDS ORDERED: morphine INJ 4 MG/ML 1 ML (VIAL/SYRINGE) IV PRN (16:00)
[2019-05-11] MEDS ORDERED: morphine INJ 10 MG/ML 1ML (SYR OR VIAL) IVP PRN (16:00)
[2019-05-11] MEDS: NS IV 1000 ML 1,000 ML IV SCH ×2 (16:23→20:39)
[2019-05-11] MEDS ORDERED: NON-FORMULARY MEDICATION 1 EA EA (Ketorolac Tromethamine 1 DROP) OU SCH (17:00)
[2019-05-11] MEDS: metroNIDAZOLE 500MG/100ML IVPB 100 ML IV SCH (17:56)
[2019-05-11 20:00] VITALS: BP 125/78
--- NOTE | 2019-05-11 20:40 | NUR ---
PT REFUSED LOVENOX.
[2019-05-11] MEDS: ENOXAPARIN 40 MG/0.4 ML (LOVENOX) SYR SQ SCH ×2 (20:49→20:51)
[2019-05-11] MEDS: CIPROFLOXACIN IV 400MG/200ML 200 ML IV SCH (20:49)
[2019-05-11] MEDS: FAMOTIDINE 20 MG (PEPCID) TABLET PO SCH (20:49)
[2019-05-12] VITALS: BP 111/61
[2019-05-12] MEDS: metroNIDAZOLE 500MG/100ML IVPB 100 ML IV SCH ×2 (02:19→09:11)
[2019-05-12 04:00] VITALS: BP 110/68
[2019-05-12] MEDS: NS IV 1000 ML 1,000 ML IV SCH (05:05)
[2019-05-12 05:37] LABS: BASOPHILS % (AUTO) 0 % (0-10); EOSINOPHILS # (AUTO) 0.1 10^3/uL (0.0-0.3); EOSINOPHILS % (AUTO) 1 % (0-10); HEMATOCRIT 37 % (35-52); HEMOGLOBIN 12.7 G/DL (11.5-16.0); LYMPHOCYTES % (AUTO) 14 % (12-44); MEAN CORPUSCULAR HEMOGLOBIN 31 PG (25-34); MEAN CORPUSCULAR HGB CONC 35 G/DL (32-36); MEAN CORPUSCULAR VOLUME 90 FL (80-99); MEAN PLATELET VOLUME 8.4 FL (7.4-10.4); MONOCYTES # (AUTO) 0.7 X 10^3 (0.0-1.0); MONOCYTES % (AUTO) 9 % (0-12); NEUTROPHILS # (AUTO) 5.7 X 10^3 (1.8-7.8); NEUTROPHILS % (AUTO) 76 % (42-75); PLATELET COUNT 301 10^3/uL (130-400); RED CELL DISTRIBUTION WIDTH 12.3 % (10.0-14.5); WHITE BLOOD COUNT 7.5 10^3/uL (4.3-11.0)
[2019-05-12 05:52] LABS: CALCIUM 8.5 MG/DL (8.5-10.1); CREATININE SERUM 1.04 MG/DL (0.60-1.30); POTASSIUM 4.5 MMOL/L (3.6-5.0)
[2019-05-12 08:14] VITALS: BP 131/75
[2019-05-12] MEDS: CIPROFLOXACIN IV 400MG/200ML 200 ML IV SCH ×2 (08:55→09:09)
[2019-05-12] MEDS: FAMOTIDINE 20 MG (PEPCID) TABLET PO SCH (08:57)
[2019-05-12] MEDS ORDERED: PANTOPRAZOLE 40 MG (PROTONIX) TAB PO SCH (09:00)
--- NOTE | 2019-05-12 09:02 | NUR ---
Patient refused 0900 medications. States she's "just tired of being pumped full of stuff". I explained each medication and reason it had been prescribed. Patient is very anxious to be discharged.
[2019-05-12] MEDS ORDERED: CIPR-225 PO (09:55)
[2019-05-12] MEDS ORDERED: METR500T PO (09:55)
--- NOTE | 2019-05-12 09:57 | Discharge Instructions ---
Discharge [facility] Discharge Medications New, Converted or Re-Newed RX: Transmitted to Pharmacy New Medications: Ciprofloxacin HCl (Cipro) 500 Mg Tablet 500 MG PO BID, #14 TAB 0 Refills Metronidazole (Flagyl) 500 Mg Tablet 500 MG PO TID, #21 TAB 0 Refills Continued Medications: Acetaminophen (Tylenol Extra Strength) 500 Mg Tablet 500-1000 MG PO Q4H PRN for PAIN-MILD (1-4), TAB Ibuprofen (Advil) 200 Mg Tablet 200 MG PO Q8H PRN for PAIN-MILD (1-4), TAB Ketorolac Tromethamine (Ketorolac Tromethamine) 5 Ml Drops 1 DROP OU QID, EA Lisinopril (Lisinopril) 20 Mg Tablet 20 MG PO DAILY, TAB Discontinued Medications: Sulfamethoxazole/Trimethoprim (Bactrim Ds Tablet) 1 Each Tablet 1 TAB PO BID for 3 Days, TAB 3 DAY SUPPLY FILLED 05-10-19 Patient Instructions Patient Instructions: Follow up with Ivanna Mcdowell on 05/17 at 1 pm. Activity & Diet Discharge Diet: Regular Diet Activity as Tolerated: Yes Orders-Post D/C & Referrals Pneu Vac Indicated: Yes Copy Copies To 1: MD SHERMAN Arenas,BRENDON Joiner MD May 12, 2019 09:57
--- NOTE | 2019-05-12 10:01 | Discharge Summary ---
Discharge Summary Hospital Course Problems Reviewed?: Yes Problems/Diagnosis: (1) Colitis Status: Acute Assessment & Plan: Suspect given loose stools and CT findings, will start cipro/flagyl. 05/12 markedly improved, discharged on cipro and flagyl PO, recommend colonoscopy when acute illness improved. (2) Acute abdominal pain in left flank Status: Acute Assessment & Plan: CT abdomen without clear explanation, possibly related to colitis. Fentanyl made her sick, will try morphine. 05/12 markedly improved, possibly was related to colitis. (3) Acute hyponatremia Status: Acute Assessment & Plan: Unclear after further discussion whether acute- family notes that she had been recommended low salt diet in October when dx with HTN and she has eliminated salt altogether. Asymptomatic, will not use further hypertonic saline for now. Serum osmolality, urine osmolality and sodium pending. CXR and CT head okay. 05/12 improved (130), discussed not restricting sodium for now (was at 400 mg per day per her report) and avoiding excess fluid intake. Serum osmolality and urine osmolality and sodium pending at d/c. Hospital Course Date of Admission: May 11, 2019 at 08:19 Admission Diagnosis : Family Physician/Provider: Nelson Mendez MD Date of Discharge: 05/12/19 Discharge Diagnosis: See problem list Hospital Course: See problem list Labs and Pending Lab Test: Laboratory Tests 05/11/19 10:35: Sodium Level 125*L 05/11/19 14:20: Sodium Level 127L 05/12/19 05:15: Sodium Level 130L, White Blood Count 7.5, Red Blood Count 4.07L, Hemoglobin 12.7, Hematocrit 37, Mean Corpuscular Volume 90, Mean Corpuscular Hemoglobin 31, Mean Corpuscular Hemoglobin Concent 35, Red Cell Distribution Width 12.3, Platelet Count 301, Mean Platelet Volume 8.4, Neutrophils (%) (Auto) 76H, Lymphocytes (%) (Auto) 14, Monocytes (%) (Auto) 9, Eosinophils (%) (Auto) 1, Basophils (%) (Auto) 0, Neutrophils # (Auto) 5.7, Lymphocytes # (Auto) 1.0, Monocytes # (Auto) 0.7, Eosinophils # (Auto) 0.1, Basophils # (Auto) 0.0, Potassium Level 4.5, Chloride Level 102, Carbon Dioxide Level 19L, Anion Gap 9, Blood Urea Nitrogen 11, Creatinine 1.04, Estimat Glomerular Filtration Rate 53, BUN/Creatinine Ratio 11, Glucose Level 81, Calcium Level 8.5 Home Meds Active Flagyl (Metronidazole) 500 Mg Tablet 500 Mg PO TID Cipro (Ciprofloxacin HCl) 500 Mg Tablet 500 Mg PO BID Reported Advil (Ibuprofen) 200 Mg Tablet 200 Mg PO Q8H PRN Tylenol Extra Strength (Acetaminophen) 500 Mg Tablet 500-1,000 Mg PO Q4H PRN Bactrim Ds Tablet (Sulfamethoxazole/Trimethoprim) 1 Each Tablet 1 Tab PO BID 3 Days 3 DAY SUPPLY FILLED 05-10-19 Lisinopril 20 Mg Tablet 20 Mg PO DAILY Ketorolac Tromethamine 5 Ml Drops 1 Drop OU QID Assessment/Pt DC Instructions See above Orders-Post D/C & Referrals Pneu Vac Indicated: Yes Discharge Physical Examination Allergies: Coded Allergies: Penicillins (Verified Allergy, Unknown, 05/11/19) General Appearance: No Apparent Distress, WD/WN Respiratory: Lungs Clear, Normal Breath Sounds Cardiovascular: Regular Rate, Rhythm, No Murmur Skin: Normal Color, Warm/Dry Neurologic/Psychiatric: Alert, No Motor/Sensory Deficits Copy Copies To 1: Nelson Mendez MD Clinical Quality Measures DVT/VTE Risk/Contraindication: Risk Factor Score Per Nursin RFS Level Per Nursing on Admit: 4+=Very High BRENDON WHITAKER MD May 12, 2019 10:01
[2019-05-12 11:19] VITALS: BP 132/85
== END 2019-05-12 12:16 | disposition home or self-care (01) | DRG 641 ==
LOC: ER FS 05:08 → 4TH 08:19
PROVIDERS: ADMIT Family Medicine; ATTEND Family Medicine
DX: E87.1 Hypo-osmolality and hyponatremia (principal); F17.210 Nicotine dependence, cigarettes, uncomplicated; I10 Essential (primary) hypertension; H35.30 Unspecified macular degeneration; J32.8 Other chronic sinusitis; K52.9 Noninfective gastroenteritis and colitis, unspecified
CPT/HCPCS: 36415; 70450; 71045; 74174; 74176; 80048; 80053; 80320; 81000; 82570; 83930; 84295; 84300; 85025

== ENCOUNTER → 2019-06-19 | Outpatient (CLI) | payer MEDICARE, MEDICAID ==
[~2019-06-19] MED LIST: ACET-2267 PO; CIPR-225 PO; IBUP-30 PO; KETO5DRO14 OU; LISI-552 PO; METR500T PO; SULF1TAB35 PO
--- NOTE | 2019-06-19 11:26 | Diagnostic Imaging Report ---
PROCEDURE: CT abdomen and pelvis without contrast. TECHNIQUE: Multiple contiguous axial images were obtained through the abdomen and pelvis without the use of intravenous contrast. Auto Exposure Controls were utilized during the CT exam to meet ALARA standards for radiation dose reduction. INDICATION: Nephrolithiasis and renal lesion. COMPARISON: Comparison made with prior examination 05/11/2019. FINDINGS: The heart size is normal. Lung bases are clear. Liver is normal in size without focal lesions. Gallbladder is unremarkable. There is no biliary duct dilatation. Spleen is normal. Pancreas and adrenal glands are unremarkable. There are punctate bilateral nonobstructing renal calculi. There are bilateral renal cysts. Aorta is nonaneurysmal. Bowel gas pattern is nonspecific. There is no free air. There is no ascites. There are no focal inflammatory changes. Bladder is normal. There is no pelvic mass, adenopathy or free fluid. There are degenerative changes in the spine with multilevel degenerative disc disease. IMPRESSION: Bilateral renal cysts. The evaluation of these is limited due to lack of intravenous contrast. Punctate nonobstructing bilateral renal calculi. No other acute abnormality in the abdomen or pelvis. Dictated by: Dictated on workstation # [id number]
== END ==
LOC: RAD FS 10:49
PROVIDERS: ATTEND Nurse Practitioner Family
DX: N28.1 Cyst of kidney, acquired (principal); N20.0 Calculus of kidney
CPT/HCPCS: 74176

== ENCOUNTER 2019-08-08 16:26 | Emergency (ER) | payer MEDICARE, MEDICAID ==
[~2019-08-08] VITALS: Ht 162.2 cm; Wt 60.4 kg
[2019-08-08] MEDS ORDERED: NS IV 1000 ML 1,000 ML IV STA (16:34)
--- NOTE | 2019-08-08 16:38 | ED General ---
General Stated Complaint: WEAKNESS Source of Information: Patient, EMS, EMS Notes Reviewed, RN Notes Reviewed History of Present Illness Date Seen by Provider: Aug 08, 2019 Time Seen by Provider: 16:36 Initial Comments This patient is a 64-year-old female presents to the emergency department complaining of heat exhaustion. Patient states she walked about 6 or 7 blocks in the pharmacy and then walked back in realize how hot it was temperature outsides around 82. Patient states she's had nausea and fatigue. EMS picked up the patient bring to the emergency department and established an IV patient is had about a 500 cc bolus of fluid at this time. We will do medical evaluation treatment is needed. Timing/Duration: 1 Hour Modifying Factors: worse with Cold Therapy, worse with Eating, worse with Immobilization, worse with Medication, worse with Movement, worse with Rest, worse with Other Associated Systoms: No Denies Symptoms, No Chest Pain, No Cough, No Diaphoresis, No Fever/Chills, No Headaches, No Loss of Appetite, No Malaise; Nausea/Vomiting; No Rash, No Seizure, No Shortness of Air, No Syncope; Weakness; No Other Allergies and Home Medications Allergies Coded Allergies: Penicillins (Verified Allergy, Unknown, 05/11/19) Home Medications Acetaminophen 500 Mg Tablet, 500-1,000 MG PO Q4H PRN for PAIN-MILD (1-4), (Reported) Ciprofloxacin HCl 500 Mg Tablet, 500 MG PO BID Prescribed by: BRENDON WHITAKER on 05/12/19954 Ibuprofen 200 Mg Tablet, 200 MG PO Q8H PRN for PAIN-MILD (1-4), (Reported) Ketorolac Tromethamine 5 Ml Drops, 1 DROP OU QID, (Reported) Lisinopril 20 Mg Tablet, 20 MG PO DAILY, (Reported) Metronidazole 500 Mg Tablet, 500 MG PO TID Prescribed by: BRENDON WHITAKER on 05/12/19 09 Patient Home Medication List Home Medication List Reviewed: Yes Review of Systems Review of Systems Constitutional: No no symptoms reported; see HPI; No chills, No diaphoresis; dizziness; No fever; malaise, weakness; No weight gain, No weight loss, No other EENTM: No see HPI, No no symptoms reported, No ear discharge, No hearing loss, No ear pain, No blurred vision, No double vision, No eye pain, No tearing, No vision loss, No dental problems, No hoarseness, No mouth pain, No mouth swelling, No epistaxis, No nose congestion, No nose pain, No throat pain, No throat swelling, No other Respiratory: No no symptoms reported, No see HPI, No cough, No dyspnea on exertion, No hemoptysis, No orthopnea, No phlegm, No short of breath, No stridor, No wheezing, No other Cardiovascular: No no symptoms reported, No see HPI, No chest pain, No edema, No Hx of Intervention, No palpitations, No syncope, No vascular heart diseas, No other Gastrointestinal: No RUQ, No LUQ, No RLQ, No LLQ, No no symptoms reported, No see HPI, No abdominal pain, No constipation, No diarrhea, No dysphagia, No hematemesis, No heartburn, No jaundice, No loss of appetite, No melena; nausea; No vomiting, No other Musculoskeletal: No no symptoms reported, No see HPI, No back pain, No gout, No joint pain, No joint swelling, No muscle pain, No muscle stiffness, No muscle cramps, No muscle twitching, No muscle weakness, No neck pain, No other Skin: No no symptoms reported, No see HPI, No change in color, No change in hair/nails, No dryness, No hx of skin cancer, No lesions, No lumps, No pruritus, No rash, No other Past Wdyobxm-Mcgjkv-Qcnakc Hx Patient Social History Type Used: Cigarettes 2nd Hand Smoke Exposure: No Recent Hopitalizations: No Seasonal Allergies Seasonal Allergies: No Past Medical History Surgeries: No Respiratory: No Cardiac: Yes Hypertension Neurological: No Genitourinary: Yes Kidney Infection Gastrointestinal: No Musculoskeletal: No Endocrine: No HEENT: No Cancer: No Psychosocial: No Integumentary: No Blood Disorders: No Family Medical History Patient reports no known family medical history. Asthma Physical Exam Vital Signs Vital Signs - First Documented 08/08/19 16:30 Temp 36.0 Pulse 77 Resp 16 B/P (MAP) 111/65 (80) Pulse Ox 97 O2 Delivery Room Air Capillary Refill : Height, Weight, BMI Height: '" Weight: lbs. oz. kg; 24.38 BMI Method: General Appearance: No Apparent Distress, WD/WN Respiratory: Chest Non Tender, Lungs Clear, Normal Breath Sounds, No Accessory Muscle Use, No Respiratory Distress Cardiovascular: Regular Rate, Rhythm, No Edema, No Gallop, No JVD, No Murmur, Normal Peripheral Pulses Gastrointestinal: Normal Bowel Sounds, No Organomegaly, No Pulsatile Mass, Non Tender, Soft Extremity: Normal Capillary Refill, Normal Inspection, Normal Range of Motion, Non Tender, No Calf Tenderness, No Pedal Edema Neurologic/Psychiatric: Alert, Oriented x3, No Motor/Sensory Deficits, Normal Mood/Affect Skin: Normal Color, Warm/Dry Progress/Results/Core Measures Suspected Sepsis SIRS Temperature: Pulse: Respiratory Rate: Laboratory Tests 08/08/19 16:33: White Blood Count 12.1H Blood Pressure / Mean: Laboratory Tests 08/08/19 16:33: Creatinine 1.17, Platelet Count 393, Total Bilirubin 0.2 Results/Orders Lab Results Laboratory Tests Test 08/08/19 16:33 08/08/19 17:05 Range/Units White Blood Count 12.1 H 4.3-11.0 10^3/uL Red Blood Count 3.74 L 4.35-5.85 10^6/uL Hemoglobin 11.9 11.5-16.0 G/DL Hematocrit 35 35-52 % Mean Corpuscular Volume 92 80-99 FL Mean Corpuscular Hemoglobin 32 25-34 PG Mean Corpuscular Hemoglobin Concent 35 32-36 G/DL Red Cell Distribution Width 13.2 10.0-14.5 % Platelet Count 393 130-400 10^3/uL Mean Platelet Volume 8.5 7.4-10.4 FL Neutrophils (%) (Auto) 67 42-75 % Lymphocytes (%) (Auto) 18 12-44 % Monocytes (%) (Auto) 11 0-12 % Eosinophils (%) (Auto) 1 0-10 % Basophils (%) (Auto) 0 0-10 % Neutrophils # (Auto) 8.1 H 1.8-7.8 X 10^3 Lymphocytes # (Auto) 2.1 1.0-4.0 X 10^3 Monocytes # (Auto) 1.3 H 0.0-1.0 X 10^3 Eosinophils # (Auto) 0.1 0.0-0.3 10^3/uL Basophils # (Auto) 0.1 0.0-0.1 10^3/uL Sodium Level 126 L 135-145 MMOL/L Potassium Level 4.2 3.6-5.0 MMOL/L Chloride Level 90 L 98-107 MMOL/L Carbon Dioxide Level 24 21-32 MMOL/L Anion Gap 12 5-14 MMOL/L Blood Urea Nitrogen 28 H 7-18 MG/DL Creatinine 1.17 0.60-1.30 MG/DL Estimat Glomerular Filtration Rate 46 BUN/Creatinine Ratio 24 Glucose Level 116 H 70-105 MG/DL Calcium Level 9.2 8.5-10.1 MG/DL Corrected Calcium 9.4 8.5-10.1 MG/DL Total Bilirubin 0.2 0.1-1.0 MG/DL Aspartate Amino Transf (AST/SGOT) 17 5-34 U/L Alanine Aminotransferase (ALT/SGPT) 17 0-55 U/L Alkaline Phosphatase 67 40-136 U/L Total Protein 6.0 L 6.4-8.2 GM/DL Albumin 3.7 3.2-4.5 GM/DL Amylase Level 79 25-125 U/L Lipase 51 8-78 U/L Urine Color YELLOW Urine Clarity CLEAR Urine pH 6.5 5-9 Urine Specific [place] 1.015 L 1.016-1.022 Urine Protein NEGATIVE NEGATIVE Urine Glucose (UA) NEGATIVE NEGATIVE Urine Ketones NEGATIVE NEGATIVE Urine Nitrite NEGATIVE NEGATIVE Urine Bilirubin NEGATIVE NEGATIVE Urine Urobilinogen 0.2 < = 1.0 MG/DL Urine Leukocyte Esterase NEGATIVE NEGATIVE Urine RBC (Auto) NEGATIVE NEGATIVE Urine RBC NONE /HPF Urine WBC NONE /HPF Urine Squamous Epithelial Cells RARE /HPF Urine Crystals NONE /LPF Urine Bacteria NONE /HPF Urine Casts NONE /LPF Urine Mucus NEGATIVE /LPF Urine Culture Indicated NO My Orders Orders - LIU GUERRERO MD Ns Iv 1000 Ml (Sodium Chloride 0.9%) (08/08/19 16:34) Ondansetron Injection (Zofran Injectio (08/08/19 16:45) Comprehensive Metabolic Panel (08/08/19 16:34) Lipase (08/08/19 16:34) Amylase (08/08/19 16:34) Ua Culture If Indicated (08/08/19 16:34) Ed Iv/Invasive Line Start (08/08/19 16:34) Cbc With Automated Diff (08/08/19 16:34) Medications Given in ED Current Medications Medications Dose Ordered Sig/Kathya Route Start Time Stop Time Status Last Admin Dose Admin Ondansetron HCl 4 mg ONCE ONCE IVP 08/08/19 16:45 08/08/19 16:46 DC 08/08/19 16:57 4 MG Vital Signs/I&O 08/08/19 16:30 Temp 36.0 Pulse 77 Resp 16 B/P (MAP) 111/65 (80) Pulse Ox 97 O2 Delivery Room Air Capillary Refill : Progress Note : Time: 17:50 Progress Note Patient feeling much improved after IV fluid bolus. We did discuss at length options. Patient wished to be discharged home. I had a long discussion with patient about options. Patient is encourage by mouth fluids. We will write a prescription for Zofran to help with nausea. Patient is get plenty rest. Instructed the patient to drink 4 ounces of Pedialyte every 4 hours for the next 24 hours to help improve her placed her electrolytes. Patient states understanding patient is discharged home. Departure Impression Primary Impression: Heat exhaustion Additional Impression: Hyponatremia Disposition: HOME, SELF-CARE Condition: Stable Departure-Patient Inst. Referrals: HANY RODRIGUEZ MD (PCP) Primary Care Physician Patient Instructions: Hyponatremia, Heat Exhaustion and Heat Stroke (DC) Add. Discharge Instructions: Patient is encourage by mouth fluids. We will write a prescription for Zofran to help with nausea. Patient is get plenty rest. Instructed the patient to drink 4 ounces of Pedialyte every 4 hours for the next 24 hours to help improve her placed her electrolytes. Patient states understanding patient is discharged home. Scripts Ondansetron (Ondansetron Odt) 4 Mg Tab.rapdis 4 MG PO 3 times a day PRN for as needed, #10 TAB 0 Refills Prov: LIU GUERRERO MD 08/08/19 LIU GUERRERO MD Aug 08, 2019 16:38
[2019-08-08 16:44] LABS: HEMATOCRIT 35 % (35-52); HEMOGLOBIN 11.9 G/DL (11.5-16.0); MEAN CORPUSCULAR HEMOGLOBIN 32 PG (25-34); MEAN CORPUSCULAR HGB CONC 35 G/DL (32-36); MEAN CORPUSCULAR VOLUME 92 FL (80-99); WHITE BLOOD COUNT 12.1 10^3/uL (4.3-11.0)
--- NOTE | 2019-08-08 16:44 | NUR ---
Pts daughter called. This RN notified pt of the phone call and she gave me permission to update her daughter on her current condition. Update and condition given. Phone number received from daughter and informed her she would be provided a phone call and update when results are received.
[2019-08-08 16:45] LABS: BASOPHILS # (AUTO) 0.1 10^3/uL (0.0-0.1); BASOPHILS % (AUTO) 0 % (0-10); EOSINOPHILS # (AUTO) 0.1 10^3/uL (0.0-0.3); EOSINOPHILS % (AUTO) 1 % (0-10); LYMPHOCYTES # (AUTO) 2.1 X 10^3 (1.0-4.0); LYMPHOCYTES % (AUTO) 18 % (12-44); MEAN PLATELET VOLUME 8.5 FL (7.4-10.4); MONOCYTES # (AUTO) 1.3 X 10^3 (0.0-1.0); MONOCYTES % (AUTO) 11 % (0-12); NEUTROPHILS # (AUTO) 8.1 X 10^3 (1.8-7.8); NEUTROPHILS % (AUTO) 67 % (42-75); PLATELET COUNT 393 10^3/uL (130-400); RED CELL DISTRIBUTION WIDTH 13.2 % (10.0-14.5)
[2019-08-08] MEDS ORDERED: ONDANSETRON 4 MG/2 ML (SDV) Z0FRAN IVP ONE (16:45)
[2019-08-08 17:00] LABS: ALBUMIN 3.7 GM/DL (3.2-4.5); BILIRUBIN,TOTAL 0.2 MG/DL (0.1-1.0); CALCIUM 9.2 MG/DL (8.5-10.1); CREATININE SERUM 1.17 MG/DL (0.60-1.30); POTASSIUM 4.2 MMOL/L (3.6-5.0)
[2019-08-08 17:19] LABS: BILIRUBIN,URINE NEGATIVE (NEGATIVE); CLARITY,URINE CLEAR; COLOR,URINE YELLOW; GLUCOSE, URINE (UA) NEGATIVE (NEGATIVE); KETONES,URINE NEGATIVE (NEGATIVE); NITRITE,URINE NEGATIVE (NEGATIVE); PH,URINE 6.5 (5-9); PROTEIN,URINE NEGATIVE (NEGATIVE)
[2019-08-08 17:20] LABS: LEUKOCYTE ESTERASE ,URINE NEGATIVE (NEGATIVE); SQUAMOUS EPITHELIAL CELL,UR RARE /HPF
[2019-08-08] MEDS ORDERED: ONDA4TAB11 PO (17:52)
--- NOTE | 2019-08-08 17:52 | NUR ---
This RN called pts daughter with update and pending discharge as she had called the ED multiple times. Instructions given for Pedialyte administration per Dr. Lunsford. Daughter instructed pt would be discharged and wheeled out to parking lot in 15 min. Pts daughter acknowledged.
[2019-08-08 18:05] VITALS: BP 125/58
--- OUTSIDE RECORDS SUMMARY | 2019-08-08 21:31 | XMS REPORT | Continuity of Care Document ---
Author Organization Unknown Address Unknown Phone Unavailable Allergies Active Description Code Type Severity Reaction Onset Reported/Identified Relationship to Patient Clinical Status Yes Penicillins [id number] Drug Aller gy Unknown N/A 05/11/2019 Medications There is no data. Problems Date Dx Coded Attending Type Code Diagnosis Diagnosed By 05/12/2019 BRENDON WHITAKER MD, Ot E87 .1 HYPO-OSMOLALITY AND HYPONATREMIA 05/12/2019 BRENDON WHITAKER MD, Ot F17.210 NICOTINE DEPENDENCE, CIGARETTES, UNCOMPL 05/12/2019 BRENDON WHITAKER MD Ot H35.30 UNSPECIFIED MACULAR DEGENERATION 05/12/2019 BRENDON WHITAKER MD Ot I10 ESSENTIAL (PRIMARY) HYPERTENSION 05/12/2019 BRENDON WHITAKER MD Ot J32 .8 OTHER CHRONIC SINUSITIS 05/12/2019 BRENDON WHITAKER MD Ot K52 .9 NONINFECTIVE GASTROENTERITIS AND COLITIS 06/20/2019 YOUNG, MAY STRAPPER Ot N20.0 CALCULUS OF KIDNEY 06/20/2019 YOUNG, MAY STRAPPER Ot N28.1 CYST OF KIDNEY, ACQUIRED 07/18/2019 YOUNG, MAY STRAPPER Ot N20.0 CALCULUS OF KIDNEY 07/18/2019 YOUNG, MAY STRAPPER Ot N28.1 CYST OF KIDNEY, ACQUIRED 08/04/2019 YOUNG, MAY STRAPPER Ot N20.0 CALCULUS OF KIDNEY 08/04/2019 YOUNG, MAY STRAPPER Ot N28.1 CYST OF KIDNEY, ACQUIRED Procedures There is no data. Results Test Result Range Complete blood count (CBC) with automate d white blood cell (WBC) differential - 05/11/19 05:45 Blood leukocytes automated count (number/volume) 9.3 10*3/uL 4.3-11.0 Blood erythrocytes automated count (number/volume) 4.73 10*6/uL 4.35-5.85 Venous blood hemoglobin measurement (mass/volume) 14.9 g/dL 11.5-16.0 Blood hematocrit (volume fraction) 42 % 35-52 Automated erythrocyte mean corpuscular volume 89 [ foz_us] 80-99 Automated erythrocyte mean corpuscular h emoglobin (mass per erythrocyte) 32 pg 25-34 Automated erythrocyte mean corpuscular h emoglobin concentration measurement (mass/volume) 35 g/dL 32-36 Automated erythrocyte distribution width ratio 11. 7 % 10.0- 14.5 Automated blood platelet count (count/volume) 318 10*3/uL 130-400 Automated blood platelet mean volume measurement 8.5 [foz_us] 7.4-10.4 Automated blood neutrophils/100 leukocytes 76 % 42-75 Automated blood lymphocytes/100 leukocytes 14 % 12-44 Blood monocytes/100 leukocytes 7 % 0-12 Automated blood eosinophils/100 leukocytes 2 % 0-10 Automated blood basophils/100 leukocytes 1 % 0-10 Blood neutrophils automated count (number/volume) 7.1 10*3 1.8-7.8 Blood lymphocytes automated count (number/volume) 1.3 10*3 1.0-4.0 Blood monocytes automated count (number/volume) 0. 7 10*3 0.0-1.0 Automated eosinophil count 0.2 10*3/uL 0 .0-0.3 Automated blood basophil count (count/volume) 0.1 10*3/uL 0.0-0.1 Comprehensive metabolic panel - 05/11/19 05:45 Serum or plasma sodium measurement (moles/volume) 124 mmol/L 135-145 Serum or plasma potassium measurement (moles/volume) 3.8 mmol/L 3.6-5.0 Serum or plasma chloride measurement (moles/volume) 88 mmol/L 98-107 Carbon dioxide 23 mmol/L 21-32 Serum or plasma anion gap determination (moles/volume) 13 mmol/L 5-14 Serum or plasma urea nitrogen measurement (mass/volume ) 12 mg/dL 7-18 Serum or plasma creatinine measurement (mass/volume) 0.98 mg/dL 0.60-1.30 Serum or plasma urea nitrogen/creatinine mass ratio 110 NRG Serum or plasma creatinine measurement w ith calculation of estimated glomerular filtration rate 57 NRG Serum or plasma glucose measurement (mass/volume) 110 mg/dL 70-105 Serum or plasma calcium measurement (mass/volume) 9.8 mg/dL 8.5-10.1 Serum or plasma total bilirubin measurement (mass/volu me) 0.3 mg/dL 0.1-1.0 Serum or plasma alkaline phosphatase rubina surement (enzymatic activity/volume) 64 U/L 40-136 Serum or plasma aspartate aminotransfera se measurement (enzymatic activity/volume) 19 U/L 5-34 Serum or plasma alanine aminotransferase measurement (enzymatic activity/volume) 10 U/L 0-55 Serum or plasma protein measurement (mass/volume) 7.1 g/dL 6.4-8.2 Serum or plasma albumin measurement (mass/volume) 4.1 g/dL 3.2-4.5 CALCIUM CORRECTED 9.7 mg/dL 8.5-10.1 [id number] - 05/11/19 05:45 [id number] 261 % 280-300 SODIUM URINE RANDOM - 05/11/19 05:45 [id number] 33 % NRG Complete urinalysis with reflex to cultu re - 05/11/19 05:52 Urine color determination YELLOW NRG Urine clarity determination CLEAR NR G Urine pH measurement by test strip 7.0 5-9 Specific gravity of urine by test strip 1.010 1.016-1.022 Urine protein assay by test strip, semi-quantitative NEGATIVE NEGATIVE Urine glucose detection by automated test strip NE GATIVE NEGATIVE Erythrocytes detection in urine sediment by light micr oscopy NEGATIVE NEGATIVE Urine ketones detection by automated test strip NE GATIVE NEGATIVE Urine nitrite detection by test strip NEGATIVE NEGATIVE Urine total bilirubin detection by test strip NEGA TIVE NEGATIVE Urine urobilinogen measurement by automated test strip (mass/volume) 0.2 mg/dL < = 1.0 Urine leukocyte esterase detection by dipstick NEG ATIVE NEGATIVE Automated urine sediment erythrocyte cou nt by microscopy (number/high power field) NONE NRG Automated urine sediment leukocyte count by microscopy (number/high power field) NONE NRG Bacteria detection in urine sediment by light microsco py NEGATIVE NRG Squamous epithelial cells detection in u rine sediment by light microscopy NONE NRG Crystals detection in urine sediment by light microsco py PRESENT NRG Casts detection in urine sediment by light microscopy NONE NRG Mucus detection in urine sediment by light microscopy NONE NRG Complete urinalysis with reflex to culture NO NRG Amorphous sediment detection in urine sediment by ligh t microscopy FEW JUNAID PHOSPHATE NRG Urine creatinine measurement (mass/volum e) - 05/11/19 05:52 Urine creatinine measurement (mass/volume) 34 mg/d L 30-125 Serum or plasma ethanol measurement (mas s/volume) - 05/11/19 07:22 Serum or plasma ethanol measurement (mass/volume) < mg/dL <10 Whole blood basic metabolic panel - 01/20 07:22 Serum or plasma sodium measurement (moles/volume) 127 mmol/L 135-145 Serum or plasma potassium measurement (moles/volume) 3.9 mmol/L 3.6-5.0 Serum or plasma chloride measurement (moles/volume) 92 mmol/L 98-107 Carbon dioxide 24 mmol/L 21-32 Serum or plasma anion gap determination (moles/volume) 11 mmol/L 5-14 Serum or plasma urea nitrogen measurement (mass/volume ) 11 mg/dL 7-18 Serum or plasma creatinine measurement (mass/volume) 0.96 mg/dL 0.60-1.30 Serum or plasma urea nitrogen/creatinine mass ratio 11 NRG Serum or plasma creatinine measurement w ith calculation of estimated glomerular filtration rate 58 NRG Serum or plasma glucose measurement (mass/volume) 112 mg/dL 70-105 Serum or plasma calcium measurement (mass/volume) 8.7 mg/dL 8.5-10.1 Serum or plasma sodium measurement (mole s/volume) - 05/11/19 10:00 Serum or plasma sodium measurement (moles/volume) 126 mmol/L 135-145 Serum or plasma sodium measurement (mole s/volume) - 05/11/19 10:35 Serum or plasma sodium measurement (moles/volume) 125 mmol/L 135-145 Serum or plasma sodium measurement (mole s/volume) - 05/11/19 14:20 Serum or plasma sodium measurement (moles/volume) 127 mmol/L 135-145 Complete blood count (CBC) with automate d white blood cell (WBC) differential - 05/12/19 05:15 Blood leukocytes automated count (number/volume) 7.5 10*3/uL 4.3-11.0 Blood erythrocytes automated count (number/volume) 4.07 10*6/uL 4.35-5.85 Venous blood hemoglobin measurement (mass/volume) 12.7 g/dL 11.5-16.0 Blood hematocrit (volume fraction) 37 % 35-52 Automated erythrocyte mean corpuscular volume 90 [ foz_us] 80-99 Automated erythrocyte mean corpuscular h emoglobin (mass per erythrocyte) 31 pg 25-34 Automated erythrocyte mean corpuscular h emoglobin concentration measurement (mass/volume) 35 g/dL 32-36 Automated erythrocyte distribution width ratio 12. 3 % 10.0- 14.5 Automated blood platelet count (count/volume) 301 10*3/uL 130-400 Automated blood platelet mean volume measurement 8.4 [foz_us] 7.4-10.4 Automated blood neutrophils/100 leukocytes 76 % 42-75 Automated blood lymphocytes/100 leukocytes 14 % 12-44 Blood monocytes/100 leukocytes 9 % 0-12 Automated blood eosinophils/100 leukocytes 1 % 0-10 Automated blood basophils/100 leukocytes 0 % 0-10 Blood neutrophils automated count (number/volume) 5.7 10*3 1.8-7.8 Blood lymphocytes automated count (number/volume) 1.0 10*3 1.0-4.0 Blood monocytes automated count (number/volume) 0. 7 10*3 0.0-1.0 Automated eosinophil count 0.1 10*3/uL 0 .0-0.3 Automated blood basophil count (count/volume) 0.0 10*3/uL 0.0-0.1 Whole blood basic metabolic panel - 05/03 05:15 Serum or plasma sodium measurement (moles/volume) 130 mmol/L 135-145 Serum or plasma potassium measurement (moles/volume) 4.5 mmol/L 3.6-5.0 Serum or plasma chloride measurement (moles/volume) 102 mmol/L 98-107 Carbon dioxide 19 mmol/L 21-32 Serum or plasma anion gap determination (moles/volume) 9 mmol/L 5-14 Serum or plasma urea nitrogen measurement (mass/volume ) 11 mg/dL 7-18 Serum or plasma creatinine measurement (mass/volume) 1.04 mg/dL 0.60-1.30 Serum or plasma urea nitrogen/creatinine mass ratio 11 NRG Serum or plasma creatinine measurement w ith calculation of estimated glomerular filtration rate 53 NRG Serum or plasma glucose measurement (mass/volume) 81 mg/dL 70-105 Serum or plasma calcium measurement (mass/volume) 8.5 mg/dL 8.5-10.1 Complete blood count (CBC) with automate d white blood cell (WBC) differential - 08/08/19 16:33 Blood leukocytes automated count (number/volume) 12.1 10*3/uL 4.3-11.0 Blood erythrocytes automated count (number/volume) 3.74 10*6/uL 4.35-5.85 Venous blood hemoglobin measurement (mass/volume) 11.9 g/dL 11.5-16.0 Blood hematocrit (volume fraction) 35 % 35-52 Automated erythrocyte mean corpuscular volume 92 [ foz_us] 80-99 Automated erythrocyte mean corpuscular h emoglobin (mass per erythrocyte) 32 pg 25-34 Automated erythrocyte mean corpuscular h emoglobin concentration measurement (mass/volume) 35 g/dL 32-36 Automated erythrocyte distribution width ratio 13. 2 % 10.0- 14.5 Automated blood platelet count (count/volume) 393 10*3/uL 130-400 Automated blood platelet mean volume measurement 8.5 [foz_us] 7.4-10.4 Automated blood neutrophils/100 leukocytes 67 % 42-75 Automated blood lymphocytes/100 leukocytes 18 % 12-44 Blood monocytes/100 leukocytes 11 % 0-12 Automated blood eosinophils/100 leukocytes 1 % 0-10 Automated blood basophils/100 leukocytes 0 % 0-10 Blood neutrophils automated count (number/volume) 8.1 10*3 1.8-7.8 Blood lymphocytes automated count (number/volume) 2.1 10*3 1.0-4.0 Blood monocytes automated count (number/volume) 1. 3 10*3 0.0-1.0 Automated eosinophil count 0.1 10*3/uL 0 .0-0.3 Automated blood basophil count (count/volume) 0.1 10*3/uL 0.0-0.1 Comprehensive metabolic panel - 08/08/19 16:33 Serum or plasma sodium measurement (moles/volume) 126 mmol/L 135-145 Serum or plasma potassium measurement (moles/volume) 4.2 mmol/L 3.6-5.0 Serum or plasma chloride measurement (moles/volume) 90 mmol/L 98-107 Carbon dioxide 24 mmol/L 21-32 Serum or plasma anion gap determination (moles/volume) 12 mmol/L 5-14 Serum or plasma urea nitrogen measurement (mass/volume ) 28 mg/dL 7-18 Serum or plasma creatinine measurement (mass/volume) 1.17 mg/dL 0.60-1.30 Serum or plasma urea nitrogen/creatinine mass ratio 24 NRG Serum or plasma creatinine measurement w ith calculation of estimated glomerular filtration rate 46 NRG Serum or plasma glucose measurement (mass/volume) 116 mg/dL 70-105 Serum or plasma calcium measurement (mass/volume) 9.2 mg/dL 8.5-10.1 Serum or plasma total bilirubin measurement (mass/volu me) 0.2 mg/dL 0.1-1.0 Serum or plasma alkaline phosphatase rubina surement (enzymatic activity/volume) 67 U/L 40-136 Serum or plasma aspartate aminotransfera se measurement (enzymatic activity/volume) 17 U/L 5-34 Serum or plasma alanine aminotransferase measurement (enzymatic activity/volume) 17 U/L 0-55 Serum or plasma protein measurement (mass/volume) 6.0 g/dL 6.4-8.2 Serum or plasma albumin measurement (mass/volume) 3.7 g/dL 3.2-4.5 CALCIUM CORRECTED 9.4 mg/dL 8.5-10.1 Serum or plasma amylase measurement (enz ymatic activity/volume) - 08/08/19 16:33 Serum or plasma amylase measurement (enzymatic activit y/volume) 79 U/L 25-125 Lipase - 08/08/19 16:33 Lipase 51 U/L 8-78 Complete urinalysis with reflex to cultu re - 08/08/19 17:05 Urine color determination YELLOW NRG Urine clarity determination CLEAR NR G Urine pH measurement by test strip 6.5 5-9 Specific gravity of urine by test strip 1.015 1.016-1.022 Urine protein assay by test strip, semi-quantitative NEGATIVE NEGATIVE Urine glucose detection by automated test strip NE GATIVE NEGATIVE Erythrocytes detection in urine sediment by light micr oscopy NEGATIVE NEGATIVE Urine ketones detection by automated test strip NE GATIVE NEGATIVE Urine nitrite detection by test strip NEGATIVE NEGATIVE Urine total bilirubin detection by test strip NEGA TIVE NEGATIVE Urine urobilinogen measurement by automated test strip (mass/volume) 0.2 mg/dL < = 1.0 Urine leukocyte esterase detection by dipstick NEG ATIVE NEGATIVE Automated urine sediment erythrocyte cou nt by microscopy (number/high power field) NONE NRG Automated urine sediment leukocyte count by microscopy (number/high power field) NONE NRG Bacteria detection in urine sediment by light microsco py NONE NRG Squamous epithelial cells detection in u rine sediment by light microscopy RARE NRG Crystals detection in urine sediment by light microsco py NONE NRG Casts detection in urine sediment by light microscopy NONE NRG Mucus detection in urine sediment by light microscopy NEGATIVE NRG Complete urinalysis with reflex to culture NO NRG Encounters ACCT No. Visit Date/Time Discharge Status Pt. Type Provider Facility Loc./Unit Complaint [id number] 06/19/2019 10:49:00 020 23:59:59 CLS Outpatient MAY SPARROW [facility] RAD FS FLANK PAIN [id number] 05/11/2019 08:19:00 12:16:00 DIS Inpatient SHERMAN LESTER, BRENDON Joiner [facility] 4TH MODERATE HYPONATREMIA A CUTE L FLANK, LLQ ABD PAIN [id number] 08/08/2019 16:45:00 Document Registration
== END 2019-08-08 18:05 | disposition home or self-care (01) ==
LOC: EDUNIT# 16:26 → ER FS 16:27
DX: T67.5XXA Heat exhaustion, unspecified, initial encounter (principal); E87.1 Hypo-osmolality and hyponatremia; Z88.0 Allergy status to penicillin; I10 Essential (primary) hypertension
CPT/HCPCS: 36415; 80053; 81000; 82150; 83690; 85025; 96361; 96374

== ENCOUNTER 2019-08-27 15:10 | Emergency (ER) | payer MEDICARE, MEDICAID ==
[~2019-08-27] VITALS: Ht 162.5 cm; Wt 61.1 kg
[~2019-08-27 15:10] MED LIST changes: +ONDA4TAB11 PO
--- OUTSIDE RECORDS SUMMARY | 2019-08-27 15:15 | XMS REPORT | Continuity of Care Document ---
Author Organization Unknown Address Unknown Phone Unavailable Allergies Active Description Code Type Severity Reaction Onset Reported/Identified Relationship to Patient Clinical Status Yes Penicillins [id number] Drug Aller gy Unknown N/A 05/11/2019 Medications There is no data. Problems Date Dx Coded Attending Type Code Diagnosis Diagnosed By 05/12/2019 BRENDON WHITAKER MD, Ot E87 .1 HYPO-OSMOLALITY AND HYPONATREMIA 05/12/2019 BRENDON WHITAKER MD, Ot F17.210 NICOTINE DEPENDENCE, CIGARETTES, UNCOMPL 05/12/2019 BRENDON WHITAKER MD, Ot H35.30 UNSPECIFIED MACULAR DEGENERATION 05/12/2019 BRENDON WHITAKER MD Ot I10 ESSENTIAL (PRIMARY) HYPERTENSION 05/12/2019 BRENDON WHITAKER MD Ot J32 .8 OTHER CHRONIC SINUSITIS 05/12/2019 BRENDON WHITAKER MD Ot K52 .9 NONINFECTIVE GASTROENTERITIS AND COLITIS 06/20/2019 YOUNG, MAY SUPERVISOR CLAM BED Ot N20.0 CALCULUS OF KIDNEY 06/20/2019 YOUNG, MAY FRANKLINP Ot N28.1 CYST OF KIDNEY, ACQUIRED 07/18/2019 YOUNG, MAY SUPERVISOR CLAM BED Ot N20.0 CALCULUS OF KIDNEY 07/18/2019 YOUNG, MAY FRANKLINP Ot N28.1 CYST OF KIDNEY, ACQUIRED 08/04/2019 YOUNG, MAY SUPERVISOR CLAM BED Ot N20.0 CALCULUS OF KIDNEY 08/04/2019 YOUNG, MAY SUPERVISOR CLAM BED Ot N28.1 CYST OF KIDNEY, ACQUIRED 08/10/2019 LIU GUERRERO MD, Ot E87.1 HYPO-OSMOLALITY AND HYPONATREMIA 08/10/2019 LIU GUERRERO MD, Ot I1 0 ESSENTIAL (PRIMARY) HYPERTENSION 08/10/2019 LIU GUERRERO MD Ot R53.1 WEAKNESS 08/10/2019 LIU GUERRERO MD, Ot T67.5XXA HEAT EXHAUSTION, UNSPECIFIED, INITIAL EN 08/10/2019 LIU GUERRERO MD, Ot Z88.0 ALLERGY STATUS TO PENICILLIN Procedures There is no data. Results Test [...] g/dL 3.2-4.5 CALCIUM CORRECTED 9.7 mg/dL 8.5-10.1 [id number] - 05/11/19 05:45 [id number] 261 % 280-300 SODIUM URINE RANDOM - 05/11/19 05:45 [id number] 33 % NRG Complete urinalysis with reflex [...] Status Pt. Type Provider Facility Loc./Unit Complaint [id number] 08/08/2019 16:27:00 18:05:00 DIS Outpatient CESAR LESTER, LIU Wesley [facility] ER FS WEAKNESS [id number] 06/19/2019 10:49:00 23:59:59 CLS Outpatient MAY SPARROW [facility] RAD FS FLANK PAIN [id number] 05/11/2019 08:19:00 12:16:00 DIS Inpatient BRENDON WHITAKER MD [facility] 4TH MODERATE HYPONATREMIA A CUTE L FLANK, LLQ ABD PAIN
[2019-08-27] MEDS ORDERED: NS IV 1000 ML 1,000 ML IV SCH (15:30)
[2019-08-27 15:35] VITALS: BP_SYST 126; BP_SYST 129; BP_DIAS 78; BP_DIAS 79; BP_DIAS 81
[2019-08-27 15:43] LABS: HEMATOCRIT 39 % (35-52); HEMOGLOBIN 13.7 G/DL (11.5-16.0); MEAN CORPUSCULAR HEMOGLOBIN 32 PG (25-34); MEAN CORPUSCULAR HGB CONC 35 G/DL (32-36); MEAN CORPUSCULAR VOLUME 92 FL (80-99); MEAN PLATELET VOLUME 8.6 FL (7.4-10.4); PLATELET COUNT 340 10^3/uL (130-400); RED CELL DISTRIBUTION WIDTH 12.9 % (10.0-14.5); WHITE BLOOD COUNT 7.4 10^3/uL (4.3-11.0)
[2019-08-27 15:44] LABS: BASOPHILS # (AUTO) 0.1 10^3/uL (0.0-0.1); BASOPHILS % (AUTO) 1 % (0-10); EOSINOPHILS # (AUTO) 0.1 10^3/uL (0.0-0.3); EOSINOPHILS % (AUTO) 2 % (0-10); LYMPHOCYTES # (AUTO) 1.2 X 10^3 (1.0-4.0); LYMPHOCYTES % (AUTO) 16 % (12-44); MONOCYTES # (AUTO) 0.6 X 10^3 (0.0-1.0); MONOCYTES % (AUTO) 8 % (0-12); NEUTROPHILS # (AUTO) 5.3 X 10^3 (1.8-7.8); NEUTROPHILS % (AUTO) 72 % (42-75)
[2019-08-27 15:48] LABS: BACTERIA,URINE NEGATIVE /HPF; BILIRUBIN,URINE NEGATIVE (NEGATIVE); CLARITY,URINE CLEAR; COLOR,URINE PALE YELLOW; GLUCOSE, URINE (UA) NEGATIVE (NEGATIVE); KETONES,URINE NEGATIVE (NEGATIVE); LEUKOCYTE ESTERASE ,URINE TRACE (NEGATIVE); NITRITE,URINE NEGATIVE (NEGATIVE); PROTEIN,URINE NEGATIVE (NEGATIVE); SQUAMOUS EPITHELIAL CELL,UR RARE /HPF; WBC,URINE 0-2 /HPF
[2019-08-27 15:59] LABS: ALANINE AMINOTRANSFERASE 15 U/L (0-55); ALKALINE PHOSPHATASE 88 U/L (40-136); BILIRUBIN,TOTAL 0.2 MG/DL (0.1-1.0); BUN/CREATININE RATIO 16; CALCIUM 9.5 MG/DL (8.5-10.1); CARBON DIOXIDE 26 MMOL/L (21-32); CHLORIDE 89 MMOL/L (98-107); GFR ESTIMATED > 60; GLUCOSE 92 MG/DL (70-105); POTASSIUM 4.4 MMOL/L (3.6-5.0); SODIUM 127 MMOL/L (135-145)
[2019-08-27 16:00] LABS: LIPASE 29 U/L (8-78); TOTAL PROTEIN 6.8 GM/DL (6.4-8.2)
--- NOTE | 2019-08-27 16:10 | ED GI ---
General Chief Complaint: Abdominal/GI Problems Stated Complaint: DIARRHEA Nursing Triage Note: Patient presents to the ED with c/o diarrhea x3 days. She reports she was seen by her primary yesterday and was told if her condition worsened to be evaluated by the ED. She states that this generally happens when her sodium level is low. Sepsis Screen: No Definite Risk Source of Information: Patient Exam Limitations: No Limitations History of Present Illness Date Seen by Provider: Aug 27, 2019 Time Seen by Provider: 15:15 Timing/Duration: 3-4 Days Severity/Quality: Moderate Radiation: No Radiation Associated Symptoms: No Back Pain, No Chest Pain, No Fever/Chills, No Nausea/Vomiting Allergies and Home Medications Allergies Coded Allergies: Penicillins (Verified Allergy, Unknown, 05/11/19) fentanyl (Verified Allergy, Unknown, 08/27/19) Home Medications Acetaminophen 500 Mg Tablet, 500-1,000 MG PO Q4H PRN for PAIN-MILD (1-4), (Reported) Ciprofloxacin HCl 500 Mg Tablet, 500 MG PO BID Prescribed by: BRENDON WHITAKER on 05/12/19 0955 Ibuprofen 200 Mg Tablet, 200 MG PO Q8H PRN for PAIN-MILD (1-4), (Reported) Ketorolac Tromethamine 5 Ml Drops, 1 DROP OU QID, (Reported) Lisinopril 20 Mg Tablet, 20 MG PO DAILY, (Reported) Metronidazole 500 Mg Tablet, 500 MG PO TID Prescribed by: BRENDON WHITAKER on 05/12/19 0955 Ondansetron 4 Mg Tab.rapdis, 4 MG PO 3 times a day PRN for as needed Prescribed by: LIU GUERRERO on 08/08/19 7039 Patient Home Medication List Home Medication List Reviewed: Yes Review of Systems Review of Systems Constitutional: No fever; malaise, weakness EENTM: No Symptoms Reported Respiratory: No Symptoms Reported Cardiovascular: No Symptoms Reported Gastrointestinal: See HPI Genitourinary: No Symptoms Reported Musculoskeletal: no symptoms reported Skin: no symptoms reported Psychiatric/Neurological: No Symptoms Reported Endocrine: See HPI Hematologic/Lymphatic: No Symptoms Reported Past Rxgpbiv-Tcnmgt-Aifiak Hx Patient Social History Alcohol Use: Denies Use Recreational Drug Use: No Smoking Status: Current Everyday Smoker Type Used: Cigarettes 2nd Hand Smoke Exposure: No Recent Foreign Travel: No Contact w/Someone Who Travel: No Recent Infectious Disease Expo: No Recent Hopitalizations: No Physical Abuse: No Sexual Abuse: No Mistreated: No Fear: No Seasonal Allergies Seasonal Allergies: No Past Medical History Surgeries: Yes Section, Tonsillectomy Respiratory: No Cardiac: Yes Hypertension Neurological: No Genitourinary: Yes Kidney Infection, Kidney Stones Gastrointestinal: No Musculoskeletal: No Endocrine: No HEENT: No Cancer: No Psychosocial: No Integumentary: No Blood Disorders: No Family Medical History Patient reports no known family medical history. Asthma Physical Exam Vital Signs Vital Signs - First Documented 08/27/19 15:16 Temp 36.5 Pulse 74 Resp 16 B/P (MAP) 152/82 (105) Pulse Ox 97 O2 Delivery Room Air Capillary Refill : Less Than 3 Seconds Height/Weight/BMI Height: '" Weight: lbs. oz. kg; 23.00 BMI Method: General Appearance: WD/WN, no apparent distress HEENT: PERRL/EOMI, normal ENT inspection, TMs normal, pharynx normal Neck: non-tender, full range of motion, supple Respiratory: chest non-tender, lungs clear, normal breath sounds, no respiratory distress, no accessory muscle use Cardiovascular: regular rate, rhythm, no edema, no gallop Gastrointestinal: normal bowel sounds, non tender, soft, no organomegaly Extremities: normal range of motion, non-tender, normal inspection, no pedal edema Neurologic/Psychiatric: chronograph operator II-XII nml as tested, no motor/sensory deficits, alert, normal mood/affect Skin: normal color, warm/dry Progress/Results/Core Measures Results/Orders Lab Results Laboratory Tests Test 08/27/19 15:30 Range/Units White Blood Count 7.4 4.3-11.0 10^3/uL Red Blood Count 4.27 L 4.35-5.85 10^6/uL Hemoglobin 13.7 11.5-16.0 G/DL Hematocrit 39 35-52 % Mean Corpuscular Volume 92 80-99 FL Mean Corpuscular Hemoglobin 32 25-34 PG Mean Corpuscular Hemoglobin Concent 35 32-36 G/DL Red Cell Distribution Width 12.9 10.0-14.5 % Platelet Count 340 130-400 10^3/uL Mean Platelet Volume 8.6 7.4-10.4 FL Neutrophils (%) (Auto) 72 42-75 % Lymphocytes (%) (Auto) 16 12-44 % Monocytes (%) (Auto) 8 0-12 % Eosinophils (%) (Auto) 2 0-10 % Basophils (%) (Auto) 1 0-10 % Neutrophils # (Auto) 5.3 1.8-7.8 X 10^3 Lymphocytes # (Auto) 1.2 1.0-4.0 X 10^3 Monocytes # (Auto) 0.6 0.0-1.0 X 10^3 Eosinophils # (Auto) 0.1 0.0-0.3 10^3/uL Basophils # (Auto) 0.1 0.0-0.1 10^3/uL Urine Color PALE YELLOW Urine Clarity CLEAR Urine pH 7.0 5-9 Urine Specific [place] 1.010 L 1.016-1.022 Urine Protein NEGATIVE NEGATIVE Urine Glucose (UA) NEGATIVE NEGATIVE Urine Ketones NEGATIVE NEGATIVE Urine Nitrite NEGATIVE NEGATIVE Urine Bilirubin NEGATIVE NEGATIVE Urine Urobilinogen 0.2 < = 1.0 MG/DL Urine Leukocyte Esterase TRACE H NEGATIVE Urine RBC (Auto) NEGATIVE NEGATIVE Urine RBC NONE /HPF Urine WBC 0-2 /HPF Urine Squamous Epithelial Cells RARE /HPF Urine Crystals NONE /LPF Urine Bacteria NEGATIVE /HPF Urine Casts NONE /LPF Urine Mucus NONE /LPF Urine Culture Indicated NO Sodium Level 127 L 135-145 MMOL/L Potassium Level 4.4 3.6-5.0 MMOL/L Chloride Level 89 L 98-107 MMOL/L Carbon Dioxide Level 26 21-32 MMOL/L Anion Gap 12 5-14 MMOL/L Blood Urea Nitrogen 13 7-18 MG/DL Creatinine 0.80 0.60-1.30 MG/DL Estimat Glomerular Filtration Rate > 60 BUN/Creatinine Ratio 16 Glucose Level 92 70-105 MG/DL Calcium Level 9.5 8.5-10.1 MG/DL Corrected Calcium 9.5 8.5-10.1 MG/DL Total Bilirubin 0.2 0.1-1.0 MG/DL Aspartate Amino Transf (AST/SGOT) 16 5-34 U/L Alanine Aminotransferase (ALT/SGPT) 15 0-55 U/L Alkaline Phosphatase 88 40-136 U/L Total Protein 6.8 6.4-8.2 GM/DL Albumin 4.0 3.2-4.5 GM/DL Lipase 29 8-78 U/L My Orders Orders - BOAZ GROSSMAN DO Comprehensive Metabolic Panel (4/26/20 15:24) Lipase (08/27/19 15:24) Ua Culture If Indicated (08/27/19 15:24) Ed Iv/Invasive Line Start (08/27/19 15:24) Cbc With Automated Diff (08/27/19 15:24) Stool Culture (08/27/19 15:24) Ns Iv 1000 Ml (Sodium Chloride 0.9%) (08/27/19 15:30) Orthostatic Vital Signs (Adult (08/27/19 15:24) Vital Signs/I&O 08/27/19 08/27/19 15:16 15:35 Temp 36.5 Pulse 74 74 78 79 Resp 16 B/P (MAP) 152/82 (105) 126/79 (95) 129/81 (97) 126/78 (94) Pulse Ox 97 O2 Delivery Room Air Blood Pressure Mean: 94 Progress Progress Note : Time: 16:07 Progress Note Patient presents with recurrent symptoms of hyponatremia with weakness and diarrhea. Been diagnosed variously with a heat exhaustion of the things over the last couple months this is new for the patient. Differential patient appears to be euvolemic does not appear to be on any diuretics suspect more of an endocrine problem SIADH. We'll evaluate this indeed is symptomatic hyponatremia will consult with the hospitalist for observation admission further workup and evaluation. Departure Communication (Admissions) [id number]: Patient's labs are reviewed with the patient she is symptomatic hyponatremia she was offered admission to the hospital which she vehemently refused. She has follow-up already scheduled tomorrow she wished to be discharged home. She her decision-making included complications of the weakness with her hyponatremia she was advised to come back she is also advised that I would be agreeable to transfer her to that was her desire she declined this as well. Because the patient is not hypovolemic orthostatic vital signs are normal urine specific gravity is normal she is able to ambulate without assistance she probably is stable to go home she has had low sodiums documented since May and this may represent a fairly chronic condition. The patient was advised to return would facilitate admission to facility of her choice she has follow-up scheduled for tomorrow she wishes just to go home and continue her workup with her primary care doctor. Impression Primary Impression: Hyponatremia syndrome Disposition: HOME, SELF-CARE Condition: Stable Departure-Patient Inst. Referrals: HANY RODRIGUEZ MD (PCP) Primary Care Physician AM for follow up as scheduled. TEAGAN ROGER APRN (Family) Primary Care Physician Patient Instructions: Hyponatremia (DC) Add. Discharge Instructions: Return if you become more ill or change her mind about being admitted for further workup. Be sure that you keep your scheduled follow-up tomorrow. All discharge instructions reviewed with patient and/or family. Voiced understanding. BOAZ GROSSMAN DO Aug 27, 2019 16:10
[2019-08-27 16:33] VITALS: BP 127/99
== END 2019-08-27 16:33 | disposition home or self-care (01) ==
LOC: EDUNIT# 15:10 → ER FS 15:11
DX: E87.1 Hypo-osmolality and hyponatremia (principal); I10 Essential (primary) hypertension; F17.210 Nicotine dependence, cigarettes, uncomplicated; Z88.0 Allergy status to penicillin; Z88.5 Allergy status to narcotic agent
CPT/HCPCS: 36415; 80053; 81000; 83690; 85025

== ENCOUNTER → 2019-08-28 | Outpatient (CLI) | payer MEDICARE, MEDICAID ==
--- NOTE | 2019-08-28 11:27 | Diagnostic Imaging Report ---
PROCEDURE: CT chest without contrast. TECHNIQUE: Multiple contiguous axial images were obtained through the chest without the use of intravenous contrast. Auto Exposure Controls were utilized during the CT exam to meet ALARA standards for radiation dose reduction. INDICATION: Hyponatremia and shortness of breath. COMPARISON: No prior studies are available for comparison. FINDINGS: No axillary lymphadenopathy is detected. No definite mediastinal or hilar lymphadenopathy is detected. There are coronary arterial calcifications. No pericardial or pleural fluid is detected. Parenchymal evaluation does show centrilobular emphysematous changes. No discrete mass or infiltrate is identified. The upper abdomen does show renal cortical low densities, suggestive of cysts. There is a probable tiny nonobstructing calculus in the left upper pole. The bony structures are nonacute. IMPRESSION: Emphysematous changes. No acute feature is detected. Dictated by: Dictated on workstation # [id number]
== END ==
LOC: RAD FS 10:36
PROVIDERS: ATTEND Nurse Practitioner Family
DX: J43.9 Emphysema, unspecified (principal); E87.1 Hypo-osmolality and hyponatremia
CPT/HCPCS: 71250

== ENCOUNTER 2019-09-02 21:59 | Emergency (ER) | payer MEDICARE, MEDICAID ==
[~2019-09-02] VITALS: Ht 160 cm; Wt 59.4 kg
--- OUTSIDE RECORDS SUMMARY | 2019-09-02 22:05 | XMS REPORT | Continuity of Care Document ---
Author Organization Unknown Address Unknown Phone Unavailable Allergies Active Description Code Type Severity Reaction Onset Reported/Identified Relationship to Patient Clinical Status Yes Penicillins [id number] Drug Aller gy Unknown N/A 05/11/2019 Yes fentanyl [id number] Drug Allergy Unknown N/A 08/27/2019 Medications There is no data. Problems Date Dx Coded Attending Type Code Diagnosis Diagnosed By 05/12/2019 BRENDON WHITAKER MD, Ot E87 .1 HYPO-OSMOLALITY AND HYPONATREMIA 05/12/2019 BRENODN WHITAKER MD Ot F17.210 NICOTINE DEPENDENCE, CIGARETTES, UNCOMPL 05/12/2019 BRENDON WHITAKER MD, Ot H35.30 UNSPECIFIED MACULAR DEGENERATION 05/12/2019 BRENDON WHITAKER MD Ot I10 ESSENTIAL (PRIMARY) HYPERTENSION 05/12/2019 BRENDON WHITAKER MD Ot J32 .8 OTHER CHRONIC SINUSITIS 05/12/2019 BRENDON WHITAKER MD Ot K52 .9 NONINFECTIVE GASTROENTERITIS AND COLITIS 06/20/2019 YOUNG, MAY FRANKLINP Ot N20.0 CALCULUS OF KIDNEY 06/20/2019 YOUNG, MAY FRANKLINP Ot N28.1 CYST OF KIDNEY, ACQUIRED 07/18/2019 YOUNG, MAY GARMENT MANUFACTURER Ot N20.0 CALCULUS OF KIDNEY 07/18/2019 YOUNG, MAY FRANKLINP Ot N28.1 CYST OF KIDNEY, ACQUIRED 08/04/2019 YOUNG, MAY GARMENT MANUFACTURER Ot N20.0 CALCULUS OF KIDNEY 08/04/2019 YOUNG, MAY FRANKLINP Ot N28.1 CYST OF KIDNEY, ACQUIRED 08/08/2019 LIU GUERRERO MD, Ot E87.1 HYPO-OSMOLALITY AND HYPONATREMIA 08/08/2019 LIU GUERRERO MD, Ot I1 0 ESSENTIAL (PRIMARY) HYPERTENSION 08/08/2019 LIU GUERRERO MD Ot R53.1 WEAKNESS 08/08/2019 LIU GUERRERO MD, Ot T67.5XXA HEAT EXHAUSTION, UNSPECIFIED, INITIAL EN 08/08/2019 CESAR MD, LIU W Ot Z88.0 ALLERGY STATUS TO PENICILLIN 08/10/2019 LIU GUERRERO MD Ot E87.1 HYPO-OSMOLALITY AND HYPONATREMIA 08/10/2019 LIU GEURRERO MD Ot I1 0 ESSENTIAL (PRIMARY) HYPERTENSION 08/10/2019 LIU GUERRERO MD Ot R53.1 WEAKNESS 08/10/2019 LIU GUERRERO MD Ot T67.5XXA HEAT EXHAUSTION, UNSPECIFIED, INITIAL EN 08/10/2019 LIU GUERRERO MD Ot Z88.0 ALLERGY STATUS TO PENICILLIN 08/28/2019 YOUNG, MAY GARMENT MANUFACTURER Ot N20.0 CALCULUS OF KIDNEY 08/28/2019 YOUNG, MAY GARMENT MANUFACTURER Ot N28.1 CYST OF KIDNEY, ACQUIRED 08/28/2019 YOUNG, MAY GARMENT MANUFACTURER Ot N20.0 CALCULUS OF KIDNEY 08/28/2019 YOUNG, MAY GARMENT MANUFACTURER Ot N28.1 CYST OF KIDNEY, ACQUIRED 08/28/2019 YOUNG, MAY GARMENT MANUFACTURER Ot N20.0 CALCULUS OF KIDNEY 08/28/2019 YOUNG, MAY GARMENT MANUFACTURER Ot N28.1 CYST OF KIDNEY, ACQUIRED 08/28/2019 YOUNG, MAY GARMENT MANUFACTURER Ot N20.0 CALCULUS OF KIDNEY 08/28/2019 YOUNG, MAY GARMENT MANUFACTURER Ot N28.1 CYST OF KIDNEY, ACQUIRED 08/28/2019 YOUNG, MAY GARMENT MANUFACTURER Ot N20.0 CALCULUS OF KIDNEY 08/28/2019 YOUNG, MAY GARMENT MANUFACTURER Ot N28.1 CYST OF KIDNEY, ACQUIRED 08/29/2019 TEAGAN ROGER ROLL CAPPER Ot E87.1 HYPO-OSMOLALITY AND HYPONATREMIA 08/29/2019 TEAGAN ROGER ROLL CAPPER Ot J43.9 EMPHYSEMA, UNSPECIFIED 08/30/2019 GROSSMAN DO, BOAZ B Ot E87.1 HYPO-OSMOLALITY AND HYPONATREMIA 08/30/2019 GROSSMAN DO, BOAZ Adis Ot F17.2 10 NICOTINE DEPENDENCE, CIGARETTES, UNCOMPL 08/30/2019 GROSSMAN DO, BOAZ B Ot I10 ESSENTIAL (PRIMARY) HYPERTENSION 08/30/2019 GROSSMAN DO, BOAZ Adis Ot R19.7 DIARRHEA, UNSPECIFIED 08/30/2019 GROSSMAN DO, BOAZ B Ot Z88.0 ALLERGY STATUS TO PENICILLIN 08/30/2019 GROSSMAN DO, BOAZ B Ot Z88.5 ALLERGY STATUS TO NARCOTIC AGENT STATUS 08/30/2019 GROSSMAN DO, BOAZ B Ot E87.1 HYPO-OSMOLALITY AND HYPONATREMIA 08/30/2019 [facility] BOAZ Adis Ot F17.2 10 NICOTINE DEPENDENCE, CIGARETTES, UNCOMPL 08/30/2019 [facility] BOAZ Adis Ot I10 ESSENTIAL (PRIMARY) HYPERTENSION 08/30/[facility].7 [facility]A, UNSPECIFIED 08/30/[facility].0 ALLERGY STATUS TO PENICILLIN 08/30/2019 [facility] BOAZ Adis Ot Z88.5 ALLERGY STATUS TO NARCOTIC AGENT STATUS Procedures There is no data. Results Test [...] g/dL 3.2-4.5 CALCIUM CORRECTED 9.7 mg/dL 8.5-10.1 [id number] - 05/11/19 05:45 [id number] 261 % 280-300 SODIUM URINE RANDOM - 05/11/19 05:45 [id number] 33 % NRG Complete urinalysis with reflex [...] urinalysis with reflex to culture NO NRG Complete blood count (CBC) with automate d white blood cell (WBC) differential - 08/27/19 15:30 Blood leukocytes automated count (number/volume) 7.4 10*3/uL 4.3-11.0 Blood erythrocytes automated count (number/volume) 4.27 10*6/uL 4.35-5.85 Venous blood hemoglobin measurement (mass/volume) 13.7 g/dL 11.5-16.0 Blood hematocrit (volume fraction) 39 % 35-52 Automated erythrocyte mean corpuscular volume 92 [ foz_us] 80-99 Automated erythrocyte mean corpuscular h emoglobin (mass per erythrocyte) 32 pg 25-34 Automated erythrocyte mean corpuscular h emoglobin concentration measurement (mass/volume) 35 g/dL 32-36 Automated erythrocyte distribution width ratio 12. 9 % 10.0- 14.5 Automated blood platelet count (count/volume) 340 10*3/uL 130-400 Automated blood platelet mean volume measurement 8.6 [foz_us] 7.4-10.4 Automated blood neutrophils/100 leukocytes 72 % 42-75 Automated blood lymphocytes/100 leukocytes 16 % 12-44 Blood monocytes/100 leukocytes 8 % 0-12 Automated blood eosinophils/100 leukocytes 2 % 0-10 Automated blood basophils/100 leukocytes 1 % 0-10 Blood neutrophils automated count (number/volume) 5.3 10*3 1.8-7.8 Blood lymphocytes automated count (number/volume) 1.2 10*3 1.0-4.0 Blood monocytes automated count (number/volume) 0. 6 10*3 0.0-1.0 Automated eosinophil count 0.1 10*3/uL 0 .0-0.3 Automated blood basophil count (count/volume) 0.1 10*3/uL 0.0-0.1 Complete urinalysis with reflex to cultu re - 08/27/19 15:30 Urine color determination PALE YELLOW N RG Urine clarity determination CLEAR NR G Urine [...] 1.0 Urine leukocyte esterase detection by dipstick TRA CE NEGATIVE Automated urine sediment erythrocyte cou nt by microscopy (number/high power field) NONE NRG Automated urine sediment leukocyte count by microscopy (number/high power field) [HPF] NRG Bacteria detection in urine sediment by [...] urinalysis with reflex to culture NO NRG Comprehensive metabolic panel - 08/27/19 15:30 Serum or plasma sodium measurement (moles/volume) 127 mmol/L 135-145 Serum or plasma potassium measurement (moles/volume) 4.4 mmol/L 3.6-5.0 Serum or plasma chloride measurement (moles/volume) 89 mmol/L 98-107 Carbon dioxide 26 mmol/L 21-32 Serum or plasma anion gap determination (moles/volume) 12 mmol/L 5-14 Serum or plasma urea nitrogen measurement (mass/volume ) 13 mg/dL 7-18 Serum or plasma creatinine measurement (mass/volume) 0.80 mg/dL 0.60-1.30 Serum or plasma urea nitrogen/creatinine mass ratio 16 NRG Serum or plasma creatinine measurement w ith calculation of estimated glomerular filtration rate > NRG Serum or plasma glucose measurement (mass/volume) 92 mg/dL 70-105 Serum or plasma calcium measurement (mass/volume) 9.5 mg/dL 8.5-10.1 Serum or plasma total bilirubin measurement (mass/volu me) 0.2 mg/dL 0.1-1.0 Serum or plasma alkaline phosphatase rubina surement (enzymatic activity/volume) 88 U/L 40-136 Serum or plasma aspartate aminotransfera se measurement (enzymatic activity/volume) 16 U/L 5-34 Serum or plasma alanine aminotransferase measurement (enzymatic activity/volume) 15 U/L 0-55 Serum or plasma protein measurement (mass/volume) 6.8 g/dL 6.4-8.2 Serum or plasma albumin measurement (mass/volume) 4.0 g/dL 3.2-4.5 CALCIUM CORRECTED 9.5 mg/dL 8.5-10.1 Lipase - 08/27/19 15:30 Lipase 29 U/L 8-78 Encounters ACCT No. Visit Date/Time Discharge Status Pt. Type Provider Facility Loc./Unit Complaint [id number] 08/28/2019 10:36:00 23:59:59 CLS Outpatient TEAGAN ROGER APRN [facility] RAD FS E87.1 [id number] 08/27/2019 15:11:00 16:33:00 DIS Outpatient BOAZ GROSSMAN DO [facility] ER FS DIARRHEA [id number] 08/08/2019 16:27:00 18:05:00 DIS Emergency LIU GUERRERO MD [facility] ER FS WEAKNESS [id number] 06/19/2019 10:49:00 02/17/2 020 23:59:59 CLS Outpatient MAY SPARROW [facility] RAD FS FLANK PAIN [id number] 05/11/2019 08:19:00 12:16:00 DIS Inpatient SHERMAN LESTER, BRENDON Joiner [facility] 4TH MODERATE HYPONATREMIA A CUTE L FLANK, LLQ ABD PAIN
[2019-09-02 22:22] LABS: BASOPHILS # (AUTO) 0.1 10^3/uL (0.0-0.1); BASOPHILS % (AUTO) 1 % (0-10); EOSINOPHILS # (AUTO) 0.1 10^3/uL (0.0-0.3); EOSINOPHILS % (AUTO) 2 % (0-10); HEMATOCRIT 40 % (35-52); LYMPHOCYTES # (AUTO) 1.2 X 10^3 (1.0-4.0); LYMPHOCYTES % (AUTO) 16 % (12-44); MEAN CORPUSCULAR HEMOGLOBIN 32 PG (25-34); MEAN CORPUSCULAR HGB CONC 35 G/DL (32-36); MEAN CORPUSCULAR VOLUME 91 FL (80-99); MEAN PLATELET VOLUME 8.4 FL (7.4-10.4); MONOCYTES # (AUTO) 0.7 X 10^3 (0.0-1.0); MONOCYTES % (AUTO) 10 % (0-12); NEUTROPHILS # (AUTO) 5.2 X 10^3 (1.8-7.8); NEUTROPHILS % (AUTO) 70 % (42-75); PLATELET COUNT 473 10^3/uL (130-400); RED CELL DISTRIBUTION WIDTH 13.1 % (10.0-14.5); WHITE BLOOD COUNT 7.3 10^3/uL (4.3-11.0)
[2019-09-02] MEDS: NS IV 1000 ML 1,000 ML IV SCH ×2 (22:23→22:27)
--- NOTE | 2019-09-02 22:28 | ED GI ---
General Chief Complaint: Abdominal/GI Problems Stated Complaint: C-DIFF History of Present Illness Date Seen by Provider: September 02, 2019 Time Seen by Provider: 22:12 Initial Comments The patient is a 64-year-old female with a history of hypertension on lisinopril as well as what sounds like gastritis and/or reflux on daily omeprazole. She plans to follow-up in 3 days for an already-scheduled EGD with her information support project manager at [place], [place]. The patient reports that over the past month to 2 months she has been on multiple rounds of antibiotics by mouth for a variety of issues, most recently for sinus infection. 7 days ago she developed profuse watery nonbloody diarrhea with associated abdominal cramping without any associated focal abdominal discomfort. 3 days ago she was tested for C. difficile infection at [facility] and was positive. She was then started on oral metronidazole and has been taking it for 2 days. She presents with concern for significant fatigue and dehydration in the setting of ongoing profuse watery diarrhea. She states she does not feel any better and in fact feels worse and has not been able to take in food or fluids by mouth today because "things just don't taste good." She denies associated fevers, nausea or vomiting, hematemesis, hematochezia, melena, upper respiratory congestion/rhinorrhea, cough, shortness of breath or chest pain, focal abdominal pain of any kind as above, flank pain, back pain, dysuria or hematuria. Patient is alert and pleasantly and appropriately interactive and in no acute distress with appropriate vital signs upon initial evaluation here in the emergency department. She appears to be in no acute distress. Allergies and Home Medications Allergies Coded Allergies: Penicillins (Verified Allergy, Unknown, 05/11/19) fentanyl (Verified Allergy, Unknown, 08/27/19) Home Medications Acetaminophen 500 Mg Tablet, 500-1,000 MG PO Q4H PRN for PAIN-MILD (1-4), (Reported) Ciprofloxacin HCl 500 Mg Tablet, 500 MG PO BID Prescribed by: BRENDON WHITAKER on 05/12/19 0955 Ibuprofen 200 Mg Tablet, 200 MG PO Q8H PRN for PAIN-MILD (1-4), (Reported) Ketorolac Tromethamine 5 Ml Drops, 1 DROP OU QID, (Reported) Lisinopril 20 Mg Tablet, 20 MG PO DAILY, (Reported) Metronidazole 500 Mg Tablet, 500 MG PO TID Prescribed by: BRENDON WHITAKER on 05/12/19 0955 Ondansetron 4 Mg Tab.rapdis, 4 MG PO 3 times a day PRN for as needed Prescribed by: LIU GUERRERO on 08/08/19 1752 [vancomycin 125mg tab] , 125 MG PO Q6H Prescribed by: MIKA MOREJON on 09/02/19 2307 Patient Home Medication List Home Medication List Reviewed: Yes Review of Systems Review of Systems Constitutional: see HPI All Other Systems Reviewed Negative Unless Noted: Yes (Negative excepted noted.) Past Aoxupwa-Trfkbf-Urubqd Hx Past Med/Social Hx: Reviewed Nursing Past Med/Soc Hx Patient Social History Type Used: Cigarettes 2nd Hand Smoke Exposure: No Recent Foreign Travel: No Contact w/Someone Who Travel: No Recent Hopitalizations: No Seasonal Allergies Seasonal Allergies: No Past Medical History Surgeries: Yes Section, Tonsillectomy Respiratory: No Cardiac: Yes Hypertension Neurological: No Genitourinary: Yes Kidney Infection, Kidney Stones Gastrointestinal: No Musculoskeletal: No Endocrine: No HEENT: No Cancer: No Psychosocial: No Integumentary: No Blood Disorders: No Family Medical History Reviewed Nursing Family Hx Patient reports no known family medical history. Asthma Physical Exam Vital Signs Vital Signs - First Documented 09/02/19 22:15 Temp 36.6 Pulse 74 Resp 12 B/P (MAP) 144/89 (107) O2 Delivery Room Air Capillary Refill : Height/Weight/BMI Height: '" Weight: lbs. oz. kg; 23.00 BMI Method: General Appearance: no apparent distress Exam Comments This is an older female appearing nontoxic and in no acute distress. Head is normocephalic and atraumatic. Neck is supple and nontender. Oropharynx is mildly tacky. Lungs are clear to auscultation at all stations. There is a normal S1 and S2 without rubs or gallops and capillary refill is appropriate, less than 2 seconds globally. Abdomen is soft, nontender and nondistended. Skin is warm and dry without cyanosis, clubbing or edema. Psychiatrically, the patient demonstrates appropriate mood and affect and is alert. Progress/Results/Core Measures Results/Orders Lab Results Laboratory Tests Test 09/02/19 22:20 Range/Units White Blood Count 7.3 4.3-11.0 10^3/uL Red Blood Count 4.37 4.35-5.85 10^6/uL Hemoglobin 14.0 11.5-16.0 G/DL Hematocrit 40 35-52 % Mean Corpuscular Volume 91 80-99 FL Mean Corpuscular Hemoglobin 32 25-34 PG Mean Corpuscular Hemoglobin Concent 35 32-36 G/DL Red Cell Distribution Width 13.1 10.0-14.5 % Platelet Count 473 H 130-400 10^3/uL Mean Platelet Volume 8.4 7.4-10.4 FL Neutrophils (%) (Auto) 70 42-75 % Lymphocytes (%) (Auto) 16 12-44 % Monocytes (%) (Auto) 10 0-12 % Eosinophils (%) (Auto) 2 0-10 % Basophils (%) (Auto) 1 0-10 % Neutrophils # (Auto) 5.2 1.8-7.8 X 10^3 Lymphocytes # (Auto) 1.2 1.0-4.0 X 10^3 Monocytes # (Auto) 0.7 0.0-1.0 X 10^3 Eosinophils # (Auto) 0.1 0.0-0.3 10^3/uL Basophils # (Auto) 0.1 0.0-0.1 10^3/uL Urine Color YELLOW Urine Clarity CLEAR Urine pH 7.0 5-9 Urine Specific [place] <=1.005 1.016-1.022 Urine Protein NEGATIVE NEGATIVE Urine Glucose (UA) NEGATIVE NEGATIVE Urine Ketones NEGATIVE NEGATIVE Urine Nitrite NEGATIVE NEGATIVE Urine Bilirubin NEGATIVE NEGATIVE Urine Urobilinogen 0.2 < = 1.0 MG/DL Urine Leukocyte Esterase TRACE H NEGATIVE Urine RBC (Auto) NEGATIVE NEGATIVE Urine RBC NONE /HPF Urine WBC 2-5 /HPF Urine Squamous Epithelial Cells 5-10 /HPF Urine Crystals NONE /LPF Urine Bacteria FEW H /HPF Urine Casts NONE /LPF Urine Mucus NEGATIVE /LPF Urine Culture Indicated YES Sodium Level 127 L 135-145 MMOL/L Potassium Level 4.3 3.6-5.0 MMOL/L Chloride Level 90 L 98-107 MMOL/L Carbon Dioxide Level 24 21-32 MMOL/L Anion Gap 13 5-14 MMOL/L Blood Urea Nitrogen 14 7-18 MG/DL Creatinine 0.69 0.60-1.30 MG/DL Estimat Glomerular Filtration Rate > 60 BUN/Creatinine Ratio 20 Glucose Level 115 H 70-105 MG/DL Calcium Level 9.9 8.5-10.1 MG/DL Corrected Calcium 10.0 8.5-10.1 MG/DL Magnesium Level 2.0 1.6-2.4 MG/DL Total Bilirubin 0.2 0.1-1.0 MG/DL Aspartate Amino Transf (AST/SGOT) 15 5-34 U/L Alanine Aminotransferase (ALT/SGPT) 11 0-55 U/L Alkaline Phosphatase 94 40-136 U/L Total Protein 6.9 6.4-8.2 GM/DL Albumin 3.9 3.2-4.5 GM/DL My Orders Orders - MIKA MOREJON MD Cbc With Automated Diff (09/02/19 22:16) Comprehensive Metabolic Panel (09/02/19 22:16) Magnesium (09/02/19 22:16) Ua Culture If Indicated (09/02/19 22:16) Stool Culture (09/02/19 22:16) Fecal Wbc (09/02/19 22:16) C Difficile Ag + Toxin A/B. (09/02/19 22:16) Parasite Scrn Stool Giard Cryp (09/02/19 22:16) Rotavirus Antigen (09/02/19 22:16) Isolation Central Supply Req (09/02/19 22:16) Ns Iv 1000 Ml (Sodium Chloride 0.9%) (09/02/19 22:16) Urine Culture (09/02/19 22:20) Ns Iv 1000 Ml (Sodium Chloride 0.9%) (09/02/19 22:42) Acetaminophen Tablet/Caplet (Tylenol T (09/02/19 22:45) Medications Given in ED Current Medications Medications Dose Ordered Sig/Kathya Route Start Time Stop Time Status Last Admin Dose Admin Acetaminophen 975 mg ONCE ONCE PO 09/02/19 22:45 09/02/19 22:46 DC 09/02/19 22:47 975 MG Vital Signs/I&O 09/02/19 22:15 Temp 36.6 Pulse 74 Resp 12 B/P (MAP) 144/89 (107) O2 Delivery Room Air Progress Progress Note : Time: 22:28 Progress Note 64-year-old female who presents with fatigue and dehydration in the setting of 7 days of profuse watery diarrhea associated with Clostridium difficile infection confirmed by outside testing. Has been taking Flagyl for 2 days as prescribed without relief of symptoms. She states she isn't eating or drinking appropriately. Vital signs and clinical examination are generally reassuring aside from tacky mucous membranes. We'll check labs and will give IV fluids and will then reevaluate. Update 0: Workup is as shown, remarkable for evidence of mild hypochloremic hyponatremia without renal function derangement or other evidence of acute process. Overall impression is mild dehydration secondary to C. difficile diarrhea. Patient is feeling a great deal better after 2 L of crystalloid rehydration and is ambulatory with a narrow, steady gait here in the emergency department. She feels comfortable going home. She has metronidazole at home for C. difficile treatment however I discussed with her that oral vancomycin is increasingly considered a first line treatment for C. difficile and that I recommended she discuss with her primary physician switching to vancomycin for C. difficile treatment. We'll prescribe the necessary course of vancomycin. Patient will follow-up with her information support project manager on Wednesday as are scheduled and with her primary care physician in the first couple of days of this coming week. She understands that if she feels worse instead of better or develops other new symptoms of concern that she should return to the emergency department immediately for reevaluation. All questions are answered. Departure Impression Primary Impression: Clostridium difficile diarrhea Additional Impressions: Other fatigue Acute hyponatremia Disposition: HOME, SELF-CARE Condition: Improved Departure-Patient Inst. Referrals: HANY RODRIGUEZ MD (PCP) Primary Care Physician TEAGAN ROGER APRN (Family) Primary Care Physician Patient Instructions: Dehydration, Adult (DC), Clostridioides difficile, Hyponatremia, Fatigue Add. Discharge Instructions: Follow-up closely with your primary doctor immediately after the weekend for a reevaluation of your symptoms and a discussion of next steps in care. Please follow up very closely with your information support project manager as already scheduled on Wednesday. We are providing a prescription for oral vancomycin; this is increasingly considered a first line treatment for C. difficile and you should discuss switching to vancomycin from metronidazole with your primary physician on Wednesday. Drink plenty of electrolyte-balanced fluids such as Pedialyte and get plenty of rest. Return to the emergency department right away with worsening symptoms or with any other new symptoms of concern. Scripts [vancomycin 125mg tab] No Conflict Check 125 MG PO Q6H for 10 Days, #40 TAB 0 Refills Prov: MIKA MOREJON MD 09/02/19 MIKA MOREJON MD September 02, 2019 22:27
[2019-09-02 22:38] LABS: BACTERIA,URINE FEW /HPF; BILIRUBIN,URINE NEGATIVE (NEGATIVE); CLARITY,URINE CLEAR; COLOR,URINE YELLOW; GLUCOSE, URINE (UA) NEGATIVE (NEGATIVE); KETONES,URINE NEGATIVE (NEGATIVE); LEUKOCYTE ESTERASE ,URINE TRACE (NEGATIVE); NITRITE,URINE NEGATIVE (NEGATIVE); PROTEIN,URINE NEGATIVE (NEGATIVE)
--- NOTE | 2019-09-02 22:38 | NUR ---
PT. REPORTED SHE IS SCHEDULED FOR UPPER AND LOWER SCOPES ON WEDNESDAY AND A BONE BIOPSY ON WEDNESDAY.
[2019-09-02 22:41] LABS: ALANINE AMINOTRANSFERASE 11 U/L (0-55); ALBUMIN 3.9 GM/DL (3.2-4.5); ALKALINE PHOSPHATASE 94 U/L (40-136); BILIRUBIN,TOTAL 0.2 MG/DL (0.1-1.0); BUN/CREATININE RATIO 20; CALCIUM 9.9 MG/DL (8.5-10.1); CARBON DIOXIDE 24 MMOL/L (21-32); CHLORIDE 90 MMOL/L (98-107); CREATININE SERUM 0.69 MG/DL (0.60-1.30); GFR ESTIMATED > 60; GLUCOSE 115 MG/DL (70-105); POTASSIUM 4.3 MMOL/L (3.6-5.0); SODIUM 127 MMOL/L (135-145); TOTAL PROTEIN 6.9 GM/DL (6.4-8.2)
[2019-09-02] MEDS ORDERED: NS IV 1000 ML 1,000 ML IV SCH (22:42)
[2019-09-02] MEDS ORDERED: ACETAMINOPHEN 325 MG TABLET PO ONE (22:45)
[2019-09-02] MEDS ORDERED: VANCOMYCIN 125 MG PO (23:07)
[2019-09-02 23:10] VITALS: BP 144/89
== END 2019-09-02 23:00 | disposition home or self-care (01) ==
LOC: EDUNIT# 21:59 → ER FS 22:01
DX: A04.8 Other specified bacterial intestinal infections (principal); R53.83 Other fatigue; E87.1 Hypo-osmolality and hyponatremia; I10 Essential (primary) hypertension; K21.9 Gastro-esophageal reflux disease without esophagitis; Z88.0 Allergy status to penicillin; Z88.5 Allergy status to narcotic agent
CPT/HCPCS: 36415; 80053; 81000; 83735; 85025; 87015; 87045; 87046; 87088; 87324; 87328; 87329; 87425; 87449; 87493; 87899

== ENCOUNTER 2019-09-08 13:40 | Emergency (ER) | payer MEDICARE, MEDICAID ==
[~2019-09-08] VITALS: Ht 163 cm; Wt 59.4 kg
[~2019-09-08 13:40] MED LIST changes: +VANCOMYCIN 125 MG PO
[2019-09-08] MEDS ORDERED: NS IV 1000 ML 1,000 ML IV SCH (14:00)
[2019-09-08 14:06] LABS: HEMATOCRIT 39 % (35-52); HEMOGLOBIN 13.5 G/DL (11.5-16.0); MEAN CORPUSCULAR HEMOGLOBIN 32 PG (25-34); MEAN CORPUSCULAR HGB CONC 34 G/DL (32-36); MEAN CORPUSCULAR VOLUME 94 FL (80-99); PLATELET COUNT 342 10^3/uL (130-400); RED CELL DISTRIBUTION WIDTH 13.4 % (10.0-14.5); WHITE BLOOD COUNT 10.6 10^3/uL (4.3-11.0)
[2019-09-08 14:07] LABS: BASOPHILS % (AUTO) 8 % (0-10); EOSINOPHILS # (AUTO) 0.1 10^3/uL (0.0-0.3); EOSINOPHILS % (AUTO) 1 % (0-10); LYMPHOCYTES % (AUTO) 13 % (12-44); MEAN PLATELET VOLUME 8.9 FL (7.4-10.4); MONOCYTES % (AUTO) 10 % (0-12); NEUTROPHILS % (AUTO) 75 % (42-75)
[2019-09-08 14:08] LABS: BASOPHILS # (AUTO) 0.1 10^3/uL (0.0-0.1); LYMPHOCYTES # (AUTO) 1.3 X 10^3 (1.0-4.0); NEUTROPHILS # (AUTO) 7.9 X 10^3 (1.8-7.8)
--- NOTE | 2019-09-08 14:17 | ED General ---
General Chief Complaint: General Problems/Pain Stated Complaint: DEHYDRATION SYMPTOMS Nursing Triage Note: Patient reports generalized weakness and fatigue. patient states she has been dealing with c-diff and had several bouts of dehydration Nursing Sepsis Screen: No Definite Risk Source of Information: Patient History of Present Illness Date Seen by Provider: September 08, 2019 Time Seen by Provider: 14:00 Initial Comments presents w c/o weakness and fatigue. Hx of C. Diff and currently having loose stool. Denies CP, SOA, abdominal pain, nausea or vomiting Allergies and Home Medications Allergies Coded Allergies: Penicillins (Verified Allergy, Unknown, 05/11/19) fentanyl (Verified Allergy, Unknown, 08/27/19) Home Medications Acetaminophen 500 Mg Tablet, 500-1,000 MG PO Q4H PRN for PAIN-MILD (1-4), (Reported) Ciprofloxacin HCl 500 Mg Tablet, 500 MG PO BID Prescribed by: BRENDON WHITAKER on 05/12/19 0955 Ibuprofen 200 Mg Tablet, 200 MG PO Q8H PRN for PAIN-MILD (1-4), (Reported) Ketorolac Tromethamine 5 Ml Drops, 1 DROP OU QID, (Reported) Lisinopril 20 Mg Tablet, 20 MG PO DAILY, (Reported) Metronidazole 500 Mg Tablet, 500 MG PO TID Prescribed by: BRNEDON WHITAKER on 05/12/19 0955 Ondansetron 4 Mg Tab.rapdis, 4 MG PO 3 times a day PRN for as needed Prescribed by: LIU GUERRERO on 08/08/19 1752 [vancomycin 125mg tab] , 125 MG PO Q6H Prescribed by: MIKA MOREJON on 09/02/19 2307 Patient Home Medication List Home Medication List Reviewed: Yes Review of Systems Review of Systems Constitutional: No dizziness, No fever; malaise, weakness EENTM: no symptoms reported Gastrointestinal: No abdominal pain, No constipation; diarrhea (loose stool), loss of appetite; No nausea, No vomiting Genitourinary: No dysuria, No frequency Musculoskeletal: No back pain, No joint pain Skin: No change in color, No rash Past Qxukvou-Iaqhkq-Qbgoky Hx Patient Social History Alcohol Use: Denies Use Recreational Drug Use: No Type Used: Cigarettes 2nd Hand Smoke Exposure: No Recent Foreign Travel: No Contact w/Someone Who Travel: No Recent Infectious Disease Expo: No Recent Hopitalizations: No Seasonal Allergies Seasonal Allergies: No Past Medical History Surgeries: Yes Section, Tonsillectomy Respiratory: No Cardiac: Yes Hypertension Neurological: No Genitourinary: Yes Kidney Infection, Kidney Stones Gastrointestinal: Yes C-Diff Musculoskeletal: No Endocrine: No HEENT: No Cancer: No Psychosocial: No Integumentary: No Blood Disorders: No Family Medical History Patient reports no known family medical history. Asthma Physical Exam Vital Signs Vital Signs - First Documented 09/08/19 13:49 Temp 36.8 Pulse 86 Resp 18 B/P (MAP) 133/58 (83) Pulse Ox 100 Capillary Refill : Less Than 3 Seconds Height, Weight, BMI Height: '" Weight: lbs. oz. kg; 22.00 BMI Method: General Appearance: No Apparent Distress, WD/WN HEENT: Normal ENT Inspection Neck: Non Tender, Supple Respiratory: Lungs Clear, No Respiratory Distress Cardiovascular: Regular Rate, Rhythm, No Edema Gastrointestinal: Non Tender, Soft; No Distended, No Guarding, No Hernia, No Mass, No Rebound Back: No CVA Tenderness, No Vertebral Tenderness Extremity: Normal Capillary Refill, Non Tender Neurologic/Psychiatric: Alert, Oriented x3, No Motor/Sensory Deficits Skin: Normal Color, Warm/Dry Progress/Results/Core Measures Suspected Sepsis Recent Fever Within 48 Hours: No Infection Criteria Present: None New/Unexplained Altered Menta: No Sepsis Screen: No Definite Risk SIRS Temperature: Pulse: 86 Respiratory Rate: 18 Laboratory Tests 09/08/19 13:48: White Blood Count 10.6 Blood Pressure 133 /58 Mean: 83 Laboratory Tests 09/08/19 13:48: Creatinine 0.87, Platelet Count 342, Total Bilirubin 0.2 Results/Orders Lab Results Laboratory Tests Test 09/08/19 13:48 Range/Units White Blood Count 10.6 4.3-11.0 10^3/uL Red Blood Count 4.21 L 4.35-5.85 10^6/uL Hemoglobin 13.5 11.5-16.0 G/DL Hematocrit 39 35-52 % Mean Corpuscular Volume 94 80-99 FL Mean Corpuscular Hemoglobin 32 25-34 PG Mean Corpuscular Hemoglobin Concent 34 32-36 G/DL Red Cell Distribution Width 13.4 10.0-14.5 % Platelet Count 342 130-400 10^3/uL Mean Platelet Volume 8.9 7.4-10.4 FL Neutrophils (%) (Auto) 75 42-75 % Lymphocytes (%) (Auto) 13 12-44 % Monocytes (%) (Auto) 10 0-12 % Eosinophils (%) (Auto) 1 0-10 % Basophils (%) (Auto) 8 0-10 % Neutrophils # (Auto) 7.9 H 1.8-7.8 X 10^3 Lymphocytes # (Auto) 1.3 1.0-4.0 X 10^3 Monocytes # (Auto) 1.0 0.0-1.0 X 10^3 Eosinophils # (Auto) 0.1 0.0-0.3 10^3/uL Basophils # (Auto) 0.1 0.0-0.1 10^3/uL Sodium Level 129 L 135-145 MMOL/L Potassium Level 4.7 3.6-5.0 MMOL/L Chloride Level 91 L 98-107 MMOL/L Carbon Dioxide Level 27 21-32 MMOL/L Anion Gap 11 5-14 MMOL/L Blood Urea Nitrogen 17 7-18 MG/DL Creatinine 0.87 0.60-1.30 MG/DL Estimat Glomerular Filtration Rate > 60 BUN/Creatinine Ratio 20 Glucose Level 94 70-105 MG/DL Calcium Level 9.5 8.5-10.1 MG/DL Corrected Calcium 9.7 8.5-10.1 MG/DL Total Bilirubin 0.2 0.1-1.0 MG/DL Aspartate Amino Transf (AST/SGOT) 18 5-34 U/L Alanine Aminotransferase (ALT/SGPT) 14 0-55 U/L Alkaline Phosphatase 76 40-136 U/L Total Protein 6.4 6.4-8.2 GM/DL Albumin 3.7 3.2-4.5 GM/DL My Orders Orders - ROVENSTINE,KYLE L DO Cbc With Automated Diff (09/08/19 13:55) Comprehensive Metabolic Panel (09/08/19 13:55) Urinalysis (09/08/19 13:55) Ed Iv/Invasive Line Start (09/08/19 13:55) Ns Iv 1000 Ml (Sodium Chloride 0.9%) (09/08/19 14:00) Vital Signs/I&O 09/08/19 13:49 Temp 36.8 Pulse 86 Resp 18 B/P (MAP) 133/58 (83) Pulse Ox 100 Capillary Refill : Less Than 3 Seconds Blood Pressure Mean: 83 Progress Note : Progress Note uneventful ER visit w normal labs and baseline Hyponatremia. VSS and feeling better after 1Liter NS. Advised to continue current Abx regimen and see PCP in 1 wk , ER sooner if worse. Departure Impression Primary Impression: Colitis Additional Impression: Hyponatremia Disposition: 01 HOME, SELF-CARE Condition: Stable Departure-Patient Inst. Decision time for Depature: 14:50 Referrals: HANY RODRIGUEZ MD (PCP) Primary Care Physician TEAGAN ROGER APRN (Family) Primary Care Physician Patient Instructions: Colitis (DC), Hyponatremia (DC) Add. Discharge Instructions: Call your doctor to arrange for follow up care in 1 week. All discharge instructions reviewed with patient and/or family. Voiced understanding. KYLE HYMAN DO September 08, 2019 14:17
[2019-09-08 14:25] LABS: ALANINE AMINOTRANSFERASE 14 U/L (0-55); ALBUMIN 3.7 GM/DL (3.2-4.5); ALKALINE PHOSPHATASE 76 U/L (40-136); BILIRUBIN,TOTAL 0.2 MG/DL (0.1-1.0); BUN/CREATININE RATIO 20; CALCIUM 9.5 MG/DL (8.5-10.1); CARBON DIOXIDE 27 MMOL/L (21-32); CHLORIDE 91 MMOL/L (98-107); CREATININE SERUM 0.87 MG/DL (0.60-1.30); GFR ESTIMATED > 60; GLUCOSE 94 MG/DL (70-105); POTASSIUM 4.7 MMOL/L (3.6-5.0); SODIUM 129 MMOL/L (135-145); TOTAL PROTEIN 6.4 GM/DL (6.4-8.2)
--- NOTE | 2019-09-08 14:50 | NUR ---
Notified Patients daughter of patient being discharged. Daughter on way and reports will be about 30 to 45 minutes.
--- OUTSIDE RECORDS SUMMARY | 2019-09-08 15:02 | XMS REPORT | Continuity of Care Document ---
Author Organization Unknown Address Unknown Phone Unavailable Allergies Active Description Code Type Severity Reaction Onset Reported/Identified Relationship to Patient Clinical Status Yes Penicillins [id number] Drug Aller gy Unknown N/A 05/11/2019 Yes fentanyl [id number] Drug Allergy Unknown N/A 08/27/2019 Medications There is no data. Problems Date Dx Coded Attending Type Code Diagnosis Diagnosed By 05/12/2019 BRENDON WHITAKER MD, Ot E87 .1 HYPO-OSMOLALITY AND HYPONATREMIA 05/12/2019 BRENDON WHITAKER MD Ot F17.210 NICOTINE DEPENDENCE, CIGARETTES, [...] CYST OF KIDNEY, ACQUIRED 07/18/2019 YOUNG, MAY ROUTER OPERATOR PIN Ot N20.0 CALCULUS OF KIDNEY 07/18/2019 YOUNG, MAY FRANKLINP Ot N28.1 CYST OF KIDNEY, ACQUIRED 08/04/2019 YOUNG, MAY ROUTER OPERATOR PIN Ot N20.0 CALCULUS OF KIDNEY 08/04/2019 YOUNG, [...] E87.1 HYPO-OSMOLALITY AND HYPONATREMIA 08/10/2019 LIU GUERRERO MD Ot I1 0 ESSENTIAL (PRIMARY) HYPERTENSION 08/10/2019 LIU GUERRERO MD Ot R53.1 WEAKNESS 08/10/2019 LIU GUERRERO MD Ot T67.5XXA HEAT EXHAUSTION, UNSPECIFIED, INITIAL EN 08/10/2019 LIU GUERRERO MD Ot Z88.0 ALLERGY STATUS TO PENICILLIN 08/27/2019 GROSSMAN DO, BOAZ B Ot E87.1 HYPO-OSMOLALITY AND HYPONATREMIA 08/27/2019 [place] DO, BOAZ B Ot F17.2 10 NICOTINE DEPENDENCE, CIGARETTES, UNCOMPL 08/27/2019 [place] DO, BOAZ B Ot I10 ESSENTIAL (PRIMARY) HYPERTENSION 08/27/2019 [place] DO, BOAZ B Ot R19.7 DIARRHEA, UNSPECIFIED 08/27/2019 [place] DO, BOAZ B Ot Z88.0 ALLERGY STATUS TO PENICILLIN 08/27/2019 [place] DO, BOAZ B Ot Z88.5 ALLERGY STATUS TO NARCOTIC AGENT STATUS 08/28/2019 YOUNG, MAY ROUTER OPERATOR PIN Ot N20.0 CALCULUS OF KIDNEY 08/28/2019 YOUNG, MAY ROUTER OPERATOR PIN Ot N28.1 CYST OF KIDNEY, ACQUIRED 08/28/2019 YOUNG, MAY ROUTER OPERATOR PIN Ot N20.0 CALCULUS OF KIDNEY 08/28/2019 YOUNG, MAY ROUTER OPERATOR PIN Ot N28.1 CYST OF KIDNEY, ACQUIRED 08/28/2019 YOUNG, MAY ROUTER OPERATOR PIN Ot N20.0 CALCULUS OF KIDNEY 08/28/2019 YOUNG, MAY ROUTER OPERATOR PIN Ot N28.1 CYST OF KIDNEY, ACQUIRED 08/28/2019 YOUNG, MAY ROUTER OPERATOR PIN Ot N20.0 CALCULUS OF KIDNEY 08/28/2019 YOUNG, MAY ROUTER OPERATOR PIN Ot N28.1 CYST OF KIDNEY, ACQUIRED 08/28/2019 YOUNG, MAY ROUTER OPERATOR PIN Ot N20.0 CALCULUS OF KIDNEY 08/28/2019 YOUNG, MAY ROUTER OPERATOR PIN Ot N28.1 CYST OF KIDNEY, ACQUIRED 08/29/2019 TEAGAN ROGER APRN Ot E87.1 HYPO-OSMOLALITY AND HYPONATREMIA 08/29/2019 TEAGAN ROGER APRN Ot J43.9 EMPHYSEMA, UNSPECIFIED 08/30/2019 GROSSMAN DO, BOAZ B Ot E87.1 HYPO-OSMOLALITY AND HYPONATREMIA 08/30/2019 GROSSMAN DO, BOAZ B Ot F17.2 10 NICOTINE DEPENDENCE, CIGARETTES, UNCOMPL 08/30/2019 GROSSMAN DO, BOAZ B Ot I10 ESSENTIAL (PRIMARY) HYPERTENSION 08/30/2019 GROSSMAN DO, BOAZ Arceo Ot R19.7 DIARRHEA, UNSPECIFIED 08/30/2019 GROSSMAN DO, BOAZ B Ot Z88.0 ALLERGY STATUS TO PENICILLIN 08/30/2019 GROSSMAN DO, BOAZ B Ot Z88.5 ALLERGY STATUS TO NARCOTIC AGENT STATUS 08/30/2019 GROSSMAN DO, BOAZ Arceo Ot E87.1 HYPO-OSMOLALITY AND HYPONATREMIA 08/30/2019 GROSSMAN DO, BOAZ Arceo Ot F17.2 10 NICOTINE DEPENDENCE, CIGARETTES, UNCOMPL 08/30/2019 GROSSMAN DO, BOAZ B Ot I10 ESSENTIAL (PRIMARY) HYPERTENSION 08/30/2019 GROSSMAN DO, BOAZ Arceo Ot R19.7 DIARRHEA, UNSPECIFIED 08/30/2019 GROSSMAN DO, BOAZ Arceo Ot Z88.0 ALLERGY STATUS TO PENICILLIN 08/30/2019 GROSSMAN DO, BOAZ B Ot Z88.5 ALLERGY STATUS TO NARCOTIC AGENT STATUS 09/02/2019 MAY SPARROW ROUTER OPERATOR PIN Ot N20.0 CALCULUS OF KIDNEY 09/02/2019 YOUNG, MAY ROUTER OPERATOR PIN Ot N28.1 CYST OF KIDNEY, ACQUIRED 09/02/2019 TEAGAN ROGER BOX INSPECTOR Ot E87.1 HYPO-OSMOLALITY AND HYPONATREMIA 09/02/2019 TEAGAN ROGER BOX INSPECTOR Ot J43.9 EMPHYSEMA, UNSPECIFIED 09/02/2019 YOUNG, MAY ROUTER OPERATOR PIN Ot N20.0 CALCULUS OF KIDNEY 09/02/2019 YOUNG, MAY ROUTER OPERATOR PIN Ot N28.1 CYST OF KIDNEY, ACQUIRED 09/02/2019 TEAGAN ROGER BOX INSPECTOR Ot E87.1 HYPO-OSMOLALITY AND HYPONATREMIA 09/02/2019 TEAGAN ROGER BOX INSPECTOR Ot J43.9 EMPHYSEMA, UNSPECIFIED 09/02/2019 YOUNG, MAY ROUTER OPERATOR PIN Ot N20.0 CALCULUS OF KIDNEY 09/02/2019 YOUNG, MAY ROUTER OPERATOR PIN Ot N28.1 CYST OF KIDNEY, ACQUIRED 09/02/2019 TEAGAN ROGER BOX INSPECTOR Ot E87.1 HYPO-OSMOLALITY AND HYPONATREMIA 09/02/2019 TEAGAN ROGER BOX INSPECTOR Ot J43.9 EMPHYSEMA, UNSPECIFIED 09/02/2019 YOUNG, MAY ROUTER OPERATOR PIN Ot N20.0 CALCULUS OF KIDNEY 09/02/2019 YOUNG, MAY ROUTER OPERATOR PIN Ot N28.1 CYST OF KIDNEY, ACQUIRED 09/02/2019 TEAGAN ROGER APRN Ot E87.1 HYPO-OSMOLALITY AND HYPONATREMIA 09/02/2019 TEAGAN ROGER APRN Ot J43.9 EMPHYSEMA, UNSPECIFIED 09/02/2019 KYARA MAY BOND Ot N20.0 CALCULUS OF KIDNEY 09/02/2019 MAY SPARROW VARUN Ot N28.1 CYST OF KIDNEY, ACQUIRED 09/02/2019 TEAGAN ROGER APRN Ot E87.1 HYPO-OSMOLALITY AND HYPONATREMIA 09/02/2019 TEAGAN ROGER APRN Ot J43.9 EMPHYSEMA, UNSPECIFIED 09/04/2019 MIKA MOREJON MD, Ot A04. 8 OTHER SPECIFIED BACTERIAL INTESTINAL INF 09/04/2019 MIKA MOREJON MD, Ot E87. 1 HYPO-OSMOLALITY AND HYPONATREMIA 09/04/2019 MIKA MOREJON MD, Ot I10 ESSENTIAL (PRIMARY) HYPERTENSION 09/04/2019 MIKA MOREJON MD, Ot K21. 9 GASTRO-ESOPHAGEAL REFLUX DISEASE WITHOUT 09/04/2019 MIKA MOREJON MD, Ot R10. 9 UNSPECIFIED ABDOMINAL PAIN 09/04/2019 MIKA MOREJON MD, Ot R53. 83 OTHER FATIGUE 09/04/2019 MIKA MOREJON MD, Ot Z88. 0 ALLERGY STATUS TO PENICILLIN 09/04/2019 MIKA MOREJON MD, Ot Z88. 5 ALLERGY STATUS TO NARCOTIC AGENT STATUS Procedures [...] g/dL 3.2-4.5 CALCIUM CORRECTED 9.7 mg/dL 8.5-10.1 [id number] - 05/11/19 05:45 [id number] 261 % 280-300 SODIUM URINE RANDOM - 05/11/19 05:45 [id number] 33 % NRG Complete urinalysis with reflex [...] - 08/27/19 15:30 Lipase 29 U/L 8-78 Clostridium difficile DNA detection by p robsuraj and target amplification method - 09/02/19 22:16 C DIFF MOLECULAR RESULT Negative for toxigen ic C diff by molecular method NRG Complete blood count (CBC) with automate d white blood cell (WBC) differential - 09/02/19 22:20 Blood leukocytes automated count (number/volume) 7.3 10*3/uL 4.3-11.0 Blood erythrocytes automated count (number/volume) 4.37 10*6/uL 4.35-5.85 Venous blood hemoglobin measurement (mass/volume) 14.0 g/dL 11.5-16.0 Blood hematocrit (volume fraction) 40 % 35-52 Automated erythrocyte mean corpuscular volume 91 [ foz_us] 80-99 Automated erythrocyte mean corpuscular h emoglobin (mass per erythrocyte) 32 pg 25-34 Automated erythrocyte mean corpuscular h emoglobin concentration measurement (mass/volume) 35 g/dL 32-36 Automated erythrocyte distribution width ratio 13. 1 % 10.0- 14.5 Automated blood platelet count (count/volume) 473 10*3/uL 130-400 Automated blood platelet mean volume measurement 8.4 [foz_us] 7.4-10.4 Automated blood neutrophils/100 leukocytes 70 % 42-75 Automated blood lymphocytes/100 leukocytes 16 % 12-44 Blood monocytes/100 leukocytes 10 % 0-12 Automated blood eosinophils/100 leukocytes 2 % 0-10 Automated blood basophils/100 leukocytes 1 % 0-10 Blood neutrophils automated count (number/volume) 5.2 10*3 1.8-7.8 Blood lymphocytes automated count (number/volume) 1.2 10*3 1.0-4.0 Blood monocytes automated count (number/volume) 0. 7 10*3 0.0-1.0 Automated eosinophil count 0.1 10*3/uL 0 .0-0.3 Automated blood basophil count (count/volume) 0.1 10*3/uL 0.0-0.1 Complete urinalysis with reflex to cultu re - 09/02/19 22:20 Urine color determination YELLOW NRG Urine clarity determination CLEAR NR G Urine pH measurement by test strip 7.0 5-9 Specific gravity of urine by test strip <= 1.016-1.022 Urine protein assay by test strip, [...] in urine sediment by light microsco py FEW NRG Squamous epithelial cells detection in u rine sediment by light microscopy 5-10 NRG Crystals detection in urine sediment by light microsco py NONE NRG Casts detection in urine sediment by light microscopy NONE NRG Mucus detection in urine sediment by light microscopy NEGATIVE NRG Complete urinalysis with reflex to culture YES NRG Comprehensive metabolic panel - 09/02/19 22:20 Serum or plasma sodium measurement (moles/volume) 127 mmol/L 135-145 Serum or plasma potassium measurement (moles/volume) 4.3 mmol/L 3.6-5.0 Serum or plasma chloride measurement (moles/volume) 90 mmol/L 98-107 Carbon dioxide 24 mmol/L 21-32 Serum or plasma anion gap determination (moles/volume) 13 mmol/L 5-14 Serum or plasma urea nitrogen measurement (mass/volume ) 14 mg/dL 7-18 Serum or plasma creatinine measurement (mass/volume) 0.69 mg/dL 0.60-1.30 Serum or plasma urea nitrogen/creatinine mass ratio 20 NRG Serum or plasma creatinine measurement w ith calculation of estimated glomerular filtration rate > NRG Serum or plasma glucose measurement (mass/volume) 115 mg/dL 70-105 Serum or plasma calcium measurement (mass/volume) 9.9 mg/dL 8.5-10.1 Serum or plasma total bilirubin measurement (mass/volu me) 0.2 mg/dL 0.1-1.0 Serum or plasma alkaline phosphatase rubina surement (enzymatic activity/volume) 94 U/L 40-136 Serum or plasma aspartate aminotransfera se measurement (enzymatic activity/volume) 15 U/L 5-34 Serum or plasma alanine aminotransferase measurement (enzymatic activity/volume) 11 U/L 0-55 Serum or plasma protein measurement (mass/volume) 6.9 g/dL 6.4-8.2 Serum or plasma albumin measurement (mass/volume) 3.9 g/dL 3.2-4.5 CALCIUM CORRECTED 10.0 mg/dL 8.5-10.1 Magnesium - 09/02/19 22:20 Magnesium 2.0 mg/dL 1.6-2.4 C DIFFICILE AG + TOXIN A/B. - 09/02/19 2 2:20 FREE TEXT ENTRY 2 POSITIVE FOR GDH ANTIGEN NRG FREE TEXT ENTRY 3 NEGATIVE FOR TOXINS A AND B NRG CALL POSITIVES (F1 HELP) CALLED TO [facility] 09/02 1600 NRG RESULTS INDETERMINANT; MOLECULAR TEST TO FOLLOW NRG Stool bacteria identification by culture - 09/02/19 22:20 Bacterial urine culture - 09/02/19 22:20 Bacterial urine culture NG NRG Stool Rotavirus antigen detection - 06/22 22:20 ROTAVIRUS RESULT NEGATIVE BY IA NRG Complete blood count (CBC) with automate d white blood cell (WBC) differential - 09/08/19 13:48 Blood leukocytes automated count (number/volume) 10.6 10*3/uL 4.3-11.0 Blood erythrocytes automated count (number/volume) 4.21 10*6/uL 4.35-5.85 Venous blood hemoglobin measurement (mass/volume) 13.5 g/dL 11.5-16.0 Blood hematocrit (volume fraction) 39 % 35-52 Automated erythrocyte mean corpuscular volume 94 [ foz_us] 80-99 Automated erythrocyte mean corpuscular h emoglobin (mass per erythrocyte) 32 pg 25-34 Automated erythrocyte mean corpuscular h emoglobin concentration measurement (mass/volume) 34 g/dL 32-36 Automated erythrocyte distribution width ratio 13. 4 % 10.0- 14.5 Automated blood platelet count (count/volume) 342 10*3/uL 130-400 Automated blood platelet mean volume measurement 8.9 [foz_us] 7.4-10.4 Automated blood neutrophils/100 leukocytes 75 % 42-75 Automated blood lymphocytes/100 leukocytes 13 % 12-44 Blood monocytes/100 leukocytes 10 % 0-12 Automated blood eosinophils/100 leukocytes 1 % 0-10 Automated blood basophils/100 leukocytes 8 % 0-10 Blood neutrophils automated count (number/volume) 7.9 10*3 1.8-7.8 Blood lymphocytes automated count (number/volume) 1.3 10*3 1.0-4.0 Blood monocytes automated count (number/volume) 1. 0 10*3 0.0-1.0 Automated eosinophil count 0.1 10*3/uL 0 .0-0.3 Automated blood basophil count (count/volume) 0.1 10*3/uL 0.0-0.1 Comprehensive metabolic panel - 09/08/19 13:48 Serum or plasma sodium measurement (moles/volume) 129 mmol/L 135-145 Serum or plasma potassium measurement (moles/volume) 4.7 mmol/L 3.6-5.0 Serum or plasma chloride measurement (moles/volume) 91 mmol/L 98-107 Carbon dioxide 27 mmol/L 21-32 Serum or plasma anion gap determination (moles/volume) 11 mmol/L 5-14 Serum or plasma urea nitrogen measurement (mass/volume ) 17 mg/dL 7-18 Serum or plasma creatinine measurement (mass/volume) 0.87 mg/dL 0.60-1.30 Serum or plasma urea nitrogen/creatinine mass ratio 20 NRG Serum or plasma creatinine measurement w ith calculation of estimated glomerular filtration rate > NRG Serum or plasma glucose measurement (mass/volume) 94 mg/dL 70-105 Serum or plasma calcium measurement (mass/volume) 9.5 mg/dL 8.5-10.1 Serum or plasma total bilirubin measurement (mass/volu me) 0.2 mg/dL 0.1-1.0 Serum or plasma alkaline phosphatase rubina surement (enzymatic activity/volume) 76 U/L 40-136 Serum or plasma aspartate aminotransfera se measurement (enzymatic activity/volume) 18 U/L 5-34 Serum or plasma alanine aminotransferase measurement (enzymatic activity/volume) 14 U/L 0-55 Serum or plasma protein measurement (mass/volume) 6.4 g/dL 6.4-8.2 Serum or plasma albumin measurement (mass/volume) 3.7 g/dL 3.2-4.5 CALCIUM CORRECTED 9.7 mg/dL 8.5-10.1 Encounters ACCT No. Visit Date/Time Discharge Status Pt. Type Provider Facility Loc./Unit Complaint [id number] 09/02/2019 22:01:00 23:00:00 DIS Outpatient DARLEEN LESTER, MIKA Wesley Via [facility] ER FS C-DIFF [id number] 08/28/2019 10:36:00 23:59:59 CLS Outpatient TEAGAN ROGER APRN Via [facility] RAD FS E87.1 [id number] 08/27/2019 15:11:00 16:33:00 DIS Emergency CHAUNCEY DO, BOAZ B Via [facility] ER FS DIARRHEA [id number] 08/08/2019 16:27:00 18:05:00 DIS Emergency CESAR LESTER, LIU Wesley Via [facility] ER FS WEAKNESS [id number] 06/19/2019 10:49:00 23:59:59 CLS Outpatient MAY SPARROW Via [facility] RAD FS FLANK PAIN [id number] 05/11/2019 08:19:00 12:16:00 DIS Inpatient SHERMAN LESTER, BRENDON Joiner Via [facility] 4TH MODERATE HYPONATREMIA A CUTE L FLANK, LLQ ABD PAIN [id number] 09/08/2019 14:08:00 Document Registration
[2019-09-08 16:04] VITALS: BP 134/84
== END 2019-09-08 16:04 | disposition home or self-care (01) ==
LOC: EDUNIT# 13:40 → ER FS 13:42
DX: K52.9 Noninfective gastroenteritis and colitis, unspecified (principal); E87.1 Hypo-osmolality and hyponatremia; I10 Essential (primary) hypertension; Z88.0 Allergy status to penicillin; Z88.5 Allergy status to narcotic agent
CPT/HCPCS: 36415; 80053; 85025

== ENCOUNTER 2019-09-09 19:16 | Emergency (ER) | payer MEDICARE, MEDICAID ==
[~2019-09-09] VITALS: Ht 162.5 cm; Wt 62.2 kg
--- OUTSIDE RECORDS SUMMARY | 2019-09-09 19:23 | XMS REPORT | Continuity of Care Document ---
Author Organization Unknown Address Unknown Phone Unavailable Allergies Active Description Code Type Severity Reaction Onset Reported/Identified Relationship to Patient Clinical Status Yes Penicillins [id number] Drug Aller gy Unknown N/A 05/11/2019 Yes fentanyl [id number] Drug Allergy Unknown N/A 08/27/2019 Medications There [...] CYST OF KIDNEY, ACQUIRED 07/18/2019 YOUNG, MAY HEAT PLANT SPECIALIST Ot N20.0 CALCULUS OF KIDNEY 07/18/2019 YOUNG, MAY FRANKLINP Ot N28.1 CYST OF KIDNEY, ACQUIRED 08/04/2019 YOUNG, MAY HEAT PLANT SPECIALIST Ot N20.0 CALCULUS OF KIDNEY 08/04/2019 YOUNG, [...] B Ot E87.1 HYPO-OSMOLALITY AND HYPONATREMIA 08/27/2019 [place] DO, BOAZ B Ot F17.2 10 NICOTINE DEPENDENCE, CIGARETTES, UNCOMPL 08/27/2019 [place] DO, BOAZ B Ot I10 ESSENTIAL (PRIMARY) HYPERTENSION 08/27/2019 [place] DO, BOAZ B Ot R19.7 DIARRHEA, UNSPECIFIED 08/27/2019 [place] DO, BOAZ B Ot Z88.0 ALLERGY STATUS TO PENICILLIN 08/27/2019 [place] DO, BOAZ B Ot Z88.5 ALLERGY STATUS TO NARCOTIC AGENT STATUS 08/28/2019 YOUNG, MAY HEAT PLANT SPECIALIST Ot N20.0 CALCULUS OF KIDNEY 08/28/2019 YOUNG, MAY HEAT PLANT SPECIALIST Ot N28.1 CYST OF KIDNEY, ACQUIRED 08/28/2019 YOUNG, MAY HEAT PLANT SPECIALIST Ot N20.0 CALCULUS OF KIDNEY 08/28/2019 YOUNG, MAY HEAT PLANT SPECIALIST Ot N28.1 CYST OF KIDNEY, ACQUIRED 08/28/2019 YOUNG, MAY HEAT PLANT SPECIALIST Ot N20.0 CALCULUS OF KIDNEY 08/28/2019 YOUNG, MAY HEAT PLANT SPECIALIST Ot N28.1 CYST OF KIDNEY, ACQUIRED 08/28/2019 YOUNG, MAY HEAT PLANT SPECIALIST Ot N20.0 CALCULUS OF KIDNEY 08/28/2019 YOUNG, MAY HEAT PLANT SPECIALIST Ot N28.1 CYST OF KIDNEY, ACQUIRED 08/28/2019 YOUNG, MAY HEAT PLANT SPECIALIST Ot N20.0 CALCULUS OF KIDNEY 08/28/2019 YOUNG, MAY HEAT PLANT SPECIALIST Ot N28.1 CYST OF KIDNEY, ACQUIRED 08/29/2019 TEAGAN ROGER APRN Ot E87.1 HYPO-OSMOLALITY AND HYPONATREMIA 08/29/2019 TEAGAN ROGER APRN Ot J43.9 EMPHYSEMA, UNSPECIFIED 08/30/2019 GROSSMAN DO, BOAZ B Ot E87.1 HYPO-OSMOLALITY AND HYPONATREMIA 08/30/2019 GROSSMAN DO, BOAZ B Ot F17.2 10 NICOTINE DEPENDENCE, CIGARETTES, UNCOMPL 08/30/2019 GROSSMAN DO, BOAZ B Ot I10 ESSENTIAL (PRIMARY) HYPERTENSION 08/30/2019 GROSSMAN DO, BOAZ B Ot R19.7 DIARRHEA, UNSPECIFIED 08/30/2019 GROSSMAN DO, [...] ESSENTIAL (PRIMARY) HYPERTENSION 08/30/2019 GROSSMAN DO, BOAZ B Ot R19.7 DIARRHEA, UNSPECIFIED 08/30/2019 GROSSMAN DO, BOAZ B Ot Z88.0 ALLERGY STATUS TO PENICILLIN 08/30/2019 GROSSMAN DO, BOAZ B Ot Z88.5 ALLERGY STATUS TO NARCOTIC AGENT STATUS 09/02/2019 MAY SPARROW Ot N20.0 CALCULUS OF KIDNEY 09/02/2019 MAY SPARROW Ot N28.1 CYST OF KIDNEY, ACQUIRED 09/02/2019 TEAGAN ROGER APRN Ot E87.1 HYPO-OSMOLALITY AND HYPONATREMIA 09/02/2019 TEAGAN ROGER APRN Ot J43.9 EMPHYSEMA, UNSPECIFIED 09/02/2019 MIKA MOREJON MD Ot A04. 8 OTHER SPECIFIED BACTERIAL INTESTINAL INF 09/02/2019 MIKA MOREJON MD Ot E87. 1 HYPO-OSMOLALITY AND HYPONATREMIA 09/02/2019 MIKA MOREJON MD Ot I10 ESSENTIAL (PRIMARY) HYPERTENSION 09/02/2019 MIKA MOREJON MD Ot K21. 9 GASTRO-ESOPHAGEAL REFLUX DISEASE WITHOUT 09/02/2019 MIKA MOREJON MD Ot R10. 9 UNSPECIFIED ABDOMINAL PAIN 09/02/2019 MIKA MOREJON MD Ot R53. 83 OTHER FATIGUE 09/02/2019 MIKA MOREJON MD Ot Z88. 0 ALLERGY STATUS TO PENICILLIN 09/02/2019 MIKA MOREJON MD Ot Z88. 5 ALLERGY STATUS TO NARCOTIC AGENT STATUS 09/02/2019 MAY SPARROW Ot N20.0 CALCULUS OF KIDNEY 09/02/2019 MAY SPARROWP Ot N28.1 CYST OF KIDNEY, ACQUIRED 09/02/2019 TEAGAN ROGER APRN Ot E87.1 HYPO-OSMOLALITY AND HYPONATREMIA 09/02/2019 TEAGAN ROGER APRN Ot J43.9 EMPHYSEMA, UNSPECIFIED 09/02/2019 YOUNG, MAY HEAT PLANT SPECIALIST Ot N20.0 CALCULUS OF KIDNEY 09/02/2019 YOUNG, MAY HEAT PLANT SPECIALIST Ot N28.1 CYST OF KIDNEY, ACQUIRED 09/02/2019 TEAGAN ROGER APRN Ot E87.1 HYPO-OSMOLALITY AND HYPONATREMIA 09/02/2019 TEAGAN ROGER APRN Ot J43.9 EMPHYSEMA, UNSPECIFIED 09/02/2019 YOUNG, MAY HEAT PLANT SPECIALIST Ot N20.0 CALCULUS OF KIDNEY 09/02/2019 YOUNG, MAY HEAT PLANT SPECIALIST Ot N28.1 CYST OF KIDNEY, ACQUIRED 09/02/2019 TEAGAN ROGER APRN Ot E87.1 HYPO-OSMOLALITY AND HYPONATREMIA 09/02/2019 TEAGAN ROGER APRN Ot J43.9 EMPHYSEMA, UNSPECIFIED 09/02/2019 YOUNG, MAY HEAT PLANT SPECIALIST Ot N20.0 CALCULUS OF KIDNEY 09/02/2019 YOUNG, MAY FRANKLINP Ot N28.1 CYST OF KIDNEY, ACQUIRED 09/02/2019 TEAGAN ROGER MANAGER CONCRETE Ot E87.1 HYPO-OSMOLALITY AND HYPONATREMIA 09/02/2019 TEAGAN ROGER APRN Ot J43.9 EMPHYSEMA, UNSPECIFIED 09/04/2019 MIKA MOREJON MD Ot A04. 8 OTHER SPECIFIED BACTERIAL INTESTINAL INF 09/04/2019 MIKA MOREJON MD Ot E87. 1 HYPO-OSMOLALITY AND HYPONATREMIA 09/04/2019 MIKA MOREJON MD Ot I10 ESSENTIAL (PRIMARY) HYPERTENSION 09/04/2019 MIKA MOREJON MD, Ot K21. 9 GASTRO-ESOPHAGEAL REFLUX DISEASE WITHOUT 09/04/2019 MIKA MOREJON MD Ot R10. 9 UNSPECIFIED ABDOMINAL PAIN 09/04/2019 MIKA MOREJON MD, Ot R53. 83 OTHER FATIGUE 09/04/2019 MIKA MOREJON MD, Ot Z88. 0 ALLERGY STATUS TO PENICILLIN 09/04/2019 MIKA MOREJON MD, Ot Z88. 5 ALLERGY STATUS TO NARCOTIC AGENT STATUS 09/08/2019 MAY SPARROW Ot N20.0 CALCULUS OF KIDNEY 09/08/2019 MAY SPARROWP Ot N28.1 CYST OF KIDNEY, ACQUIRED 09/08/2019 TEAGAN ROGER APRN Ot E87.1 HYPO-OSMOLALITY AND HYPONATREMIA 09/08/2019 TEAGAN ROGER APRN Ot J43.9 EMPHYSEMA, UNSPECIFIED 09/08/2019 MAY SPARROWP Ot N20.0 CALCULUS OF KIDNEY 09/08/2019 YOUNG, MAY FRANKLINP Ot N28.1 CYST OF KIDNEY, ACQUIRED 09/08/2019 TEAGAN ROGER APRN Ot E87.1 HYPO-OSMOLALITY AND HYPONATREMIA 09/08/2019 TEAGAN ROGER APRN Ot J43.9 EMPHYSEMA, UNSPECIFIED 09/08/2019 MAY SPARROW HEAT PLANT SPECIALIST Ot N20.0 CALCULUS OF KIDNEY 09/08/2019 YOUNGMAYP Ot N28.1 CYST OF KIDNEY, ACQUIRED 09/08/2019 TEAGAN ROGER APRN Ot E87.1 HYPO-OSMOLALITY AND HYPONATREMIA 09/08/2019 TEAGAN ROGER APRN Ot J43.9 EMPHYSEMA, UNSPECIFIED Procedures There is no data. Results Test [...] g/dL 3.2-4.5 CALCIUM CORRECTED 9.7 mg/dL 8.5-10.1 [id number] - 05/11/19 05:45 [id number] 261 % 280-300 SODIUM URINE RANDOM - 05/11/19 05:45 [id number] 33 % NRG Complete urinalysis with reflex [...] 8-78 Clostridium difficile DNA detection by p robe and target amplification method - 09/02/19 22:16 [...] Complete urinalysis with reflex to culture YES NR Comprehensive metabolic panel - 09/02/19 22:20 Serum [...] Status Pt. Type Provider Facility Loc./Unit Complaint [id number] 09/08/2019 13:42:00 020 16:04:00 DIS Emergency KYLE HYMAN DO [facility] ER FS DEHYDRATION SYM PTOMS [id number] 09/02/2019 22:01:00 23:00:00 DIS Emergency DARLEEN LESTER, MIKA Wesley [facility] ER FS C-DIFF [id number] 08/28/2019 10:36:00 23:59:59 CLS Outpatient TEAGAN ROGER APRN Via [facility] RAD FS E87.1 [id number] 08/27/2019 15:11:00 16:33:00 DIS Emergency BOAZ GROSSMAN DO Via [facility] ER FS DIARRHEA [id number] 08/08/2019 16:27:00 18:05:00 DIS Emergency CESAR LESTER, LIU W [facility] ER FS WEAKNESS [id number] 06/19/2019 10:49:00 23:59:59 CLS Outpatient MAY SPARROW Via [facility] RAD FS FLANK PAIN [id number] 05/11/2019 08:19:00 12:16:00 DIS Inpatient SHERMAN LESTER, BRENDON Joiner Via [facility] 4TH MODERATE HYPONATREMIA A CUTE L FLANK, LLQ ABD PAIN
[2019-09-09 19:38] LABS: BACTERIA,URINE FEW /HPF; BILIRUBIN,URINE NEGATIVE (NEGATIVE); CLARITY,URINE CLEAR; COLOR,URINE YELLOW; GLUCOSE, URINE (UA) NEGATIVE (NEGATIVE); KETONES,URINE NEGATIVE (NEGATIVE); LEUKOCYTE ESTERASE ,URINE 1+ (NEGATIVE); NITRITE,URINE NEGATIVE (NEGATIVE); PROTEIN,URINE NEGATIVE (NEGATIVE)
[2019-09-09 19:47] LABS: HEMATOCRIT 40 % (35-52); HEMOGLOBIN 14.1 G/DL (11.5-16.0); MEAN CORPUSCULAR HEMOGLOBIN 32 PG (25-34); WHITE BLOOD COUNT 10.9 10^3/uL (4.3-11.0)
[2019-09-09 19:48] LABS: BASOPHILS # (AUTO) 0.1 10^3/uL (0.0-0.1); BASOPHILS % (AUTO) 1 % (0-10); EOSINOPHILS # (AUTO) 0.1 10^3/uL (0.0-0.3); EOSINOPHILS % (AUTO) 1 % (0-10); LYMPHOCYTES # (AUTO) 1.6 X 10^3 (1.0-4.0); LYMPHOCYTES % (AUTO) 15 % (12-44); MEAN CORPUSCULAR HGB CONC 35 G/DL (32-36); MEAN CORPUSCULAR VOLUME 91 FL (80-99); MEAN PLATELET VOLUME 8.6 FL (7.4-10.4); MONOCYTES % (AUTO) 9 % (0-12); NEUTROPHILS % (AUTO) 74 % (42-75); PLATELET COUNT 395 10^3/uL (130-400)
--- NOTE | 2019-09-09 19:49 | ED General ---
General Chief Complaint: General Problems/Pain Stated Complaint: DEHYDRATION Nursing Triage Note: Patient states that she came in due to generalized muscle cramping in her body. Patient believes she is dehydrated because of this. Patient was seen in the ER yesterday for same issues. Nursing Sepsis Screen: No Definite Risk Source of Information: Patient History of Present Illness Date Seen by Provider: September 09, 2019 Time Seen by Provider: 19:18 Initial Comments Patient is a 64-year-old female with history of recurrent C. difficile colitis who is currently on Flagyl for the past 10 days who presents fatigue, multiple daily loose stools and decreased caloric intake. Patient was evaluated emergency department last evening for the same and had baseline labs obtained. Patient reports occasional abdominal cramping with bowel movements. That is pain-free at this time. She denies fever, chills, nausea vomiting, sweats bloody stools or dark tarry stools. Denies dizziness lightheadedness. No other acute symptoms or complaints. Timing/Duration: Intermittent Severity: Moderate Modifying Factors: improves with Eating Allergies and Home Medications Allergies Coded Allergies: Penicillins (Verified Allergy, Unknown, 05/11/19) fentanyl (Verified Allergy, Unknown, 08/27/19) Home Medications Acetaminophen 500 Mg Tablet, 500-1,000 MG PO Q4H PRN for PAIN-MILD (1-4), (Reported) Ciprofloxacin HCl 500 Mg Tablet, 500 MG PO BID Prescribed by: BRENDON WHITAKER on 05/12/19 0955 Ibuprofen 200 Mg Tablet, 200 MG PO Q8H PRN for PAIN-MILD (1-4), (Reported) Ketorolac Tromethamine 5 Ml Drops, 1 DROP OU QID, (Reported) Lisinopril 20 Mg Tablet, 20 MG PO DAILY, (Reported) Metronidazole 500 Mg Tablet, 500 MG PO TID Prescribed by: BRENDON WHITAKER on 05/12/19 0955 Ondansetron 4 Mg Tab.rapdis, 4 MG PO 3 times a day PRN for as needed Prescribed by: LIU GUERRERO on 08/08/19 1752 [vancomycin 125mg tab] , 125 MG PO Q6H Prescribed by: MIKA MOREJON on 09/02/19 8632 Patient Home Medication List Home Medication List Reviewed: Yes Review of Systems Review of Systems Constitutional: see HPI EENTM: see HPI Respiratory: see HPI Cardiovascular: see HPI Gastrointestinal: see HPI Genitourinary: see HPI Musculoskeletal: see HPI Skin: see HPI Psychiatric/Neurological: See HPI Hematologic/Lymphatic: See HPI Immunological/Allergic: see HPI Past [id number]-Ehdppc Hx Past Med/Social Hx: Reviewed Nursing Past Med/Soc Hx Patient Social History Alcohol Use: Denies Use Recreational Drug Use: No Smoking Status: Current Everyday Smoker Type Used: Cigarettes 2nd Hand Smoke Exposure: No Recent Foreign Travel: No Contact w/Someone Who Travel: No Recent Infectious Disease Expo: No Recent Hopitalizations: No Physical Abuse: No Sexual Abuse: No Mistreated: No Fear: No Seasonal Allergies Seasonal Allergies: No Past Medical History Surgeries: Yes (Bone Marrow Biopsy) Section, Tonsillectomy Respiratory: No Cardiac: Yes Hypertension Neurological: No Genitourinary: Yes Kidney Infection, Kidney Stones Gastrointestinal: Yes C-Diff Musculoskeletal: No Endocrine: No HEENT: No Cancer: No Psychosocial: No Integumentary: No Blood Disorders: No Family Medical History Patient reports no known family medical history. Asthma Physical Exam Vital Signs Vital Signs - First Documented 09/09/19 19:22 Temp 36.6 Pulse 82 Resp 18 B/P (MAP) 143/75 (97) Pulse Ox 96 O2 Delivery Room Air Capillary Refill : Less Than 3 Seconds Height, Weight, BMI Height: '" Weight: lbs. oz. kg; 23.00 BMI Method: General Appearance: No Apparent Distress, WD/WN Eyes: Bilateral Eye Normal Inspection, Bilateral Eye PERRL, Bilateral Eye EOMI HEENT: PERRL/EOMI, TMs Normal, Normal ENT Inspection, Pharynx Normal Neck: Full Range of Motion, Supple Respiratory: Lungs Clear, Normal Breath Sounds Cardiovascular: Regular Rate, Rhythm Gastrointestinal: Soft, Abnormal Bowel Sounds; No Tenderness Back: Normal Inspection, No CVA Tenderness, No Vertebral Tenderness Extremity: Normal Inspection Neurologic/Psychiatric: Alert, Oriented x3 Skin: Normal Color, Warm/Dry Focused Exam Sepsis Stage: Ruled Out Progress/Results/Core Measures Suspected Sepsis Recent Fever Within 48 Hours: No Infection Criteria Present: None New/Unexplained Altered Menta: No Sepsis Screen: No Definite Risk SIRS Temperature: Pulse: 82 Respiratory Rate: 18 Laboratory Tests 09/09/19 19:38: White Blood Count 10.9 Blood Pressure 143 /75 Mean: 97 Laboratory Tests 09/09/19 19:38: Creatinine 0.65, Platelet Count 395, Total Bilirubin 0.2 Results/Orders Lab Results Laboratory Tests Test 09/09/19 19:24 09/09/19 19:38 Range/Units Urine Color YELLOW Urine Clarity CLEAR Urine pH 7.0 5-9 Urine Specific [place] 1.010 L 1.016-1.022 Urine Protein NEGATIVE NEGATIVE Urine Glucose (UA) NEGATIVE NEGATIVE Urine Ketones NEGATIVE NEGATIVE Urine Nitrite NEGATIVE NEGATIVE Urine Bilirubin NEGATIVE NEGATIVE Urine Urobilinogen 0.2 < = 1.0 MG/DL Urine Leukocyte Esterase 1+ H NEGATIVE Urine RBC (Auto) NEGATIVE NEGATIVE Urine RBC NONE /HPF Urine WBC 5-10 H /HPF Urine Squamous Epithelial Cells 5-10 /HPF Urine Crystals NONE /LPF Urine Bacteria FEW H /HPF Urine Casts NONE /LPF Urine Mucus NEGATIVE /LPF Urine Culture Indicated YES White Blood Count 10.9 4.3-11.0 10^3/uL Red Blood Count 4.36 4.35-5.85 10^6/uL Hemoglobin 14.1 11.5-16.0 G/DL Hematocrit 40 35-52 % Mean Corpuscular Volume 91 80-99 FL Mean Corpuscular Hemoglobin 32 25-34 PG Mean Corpuscular Hemoglobin Concent 35 32-36 G/DL Red Cell Distribution Width 13.0 10.0-14.5 % Platelet Count 395 130-400 10^3/uL Mean Platelet Volume 8.6 7.4-10.4 FL Neutrophils (%) (Auto) 74 42-75 % Lymphocytes (%) (Auto) 15 12-44 % Monocytes (%) (Auto) 9 0-12 % Eosinophils (%) (Auto) 1 0-10 % Basophils (%) (Auto) 1 0-10 % Neutrophils # (Auto) 8.0 H 1.8-7.8 X 10^3 Lymphocytes # (Auto) 1.6 1.0-4.0 X 10^3 Monocytes # (Auto) 1.0 0.0-1.0 X 10^3 Eosinophils # (Auto) 0.1 0.0-0.3 10^3/uL Basophils # (Auto) 0.1 0.0-0.1 10^3/uL Sodium Level 126 L 135-145 MMOL/L Potassium Level 4.3 3.6-5.0 MMOL/L Chloride Level 91 L 98-107 MMOL/L Carbon Dioxide Level 23 21-32 MMOL/L Anion Gap 12 5-14 MMOL/L Blood Urea Nitrogen 11 7-18 MG/DL Creatinine 0.65 0.60-1.30 MG/DL Estimat Glomerular Filtration Rate > 60 BUN/Creatinine Ratio 17 Glucose Level 101 70-105 MG/DL Calcium Level 9.8 8.5-10.1 MG/DL Corrected Calcium 9.9 8.5-10.1 MG/DL Magnesium Level 1.8 1.6-2.4 MG/DL Total Bilirubin 0.2 0.1-1.0 MG/DL Aspartate Amino Transf (AST/SGOT) 17 5-34 U/L Alanine Aminotransferase (ALT/SGPT) 13 0-55 U/L Alkaline Phosphatase 82 40-136 U/L Total Protein 6.7 6.4-8.2 GM/DL Albumin 3.9 3.2-4.5 GM/DL My Orders Orders - PRISCILA KHANNA DO Cbc With Automated Diff (09/09/19 19:33) Comprehensive Metabolic Panel (09/09/19 19:33) Urinalysis (09/09/19 19:33) Magnesium (09/09/19 19:33) Urine Culture (09/09/19 19:24) Creatine Kinase (09/09/19 19:38) Thyroid Stimulating Hormone (09/09/19 19:38) Ed Iv/Invasive Line Start (09/09/19 20:08) Ns Iv 1000 Ml (Sodium Chloride 0.9%) (09/09/19 20:15) Vital Signs/I&O 09/09/19 19:22 Temp 36.6 Pulse 82 Resp 18 B/P (MAP) 143/75 (97) Pulse Ox 96 O2 Delivery Room Air Capillary Refill : Less Than 3 Seconds Blood Pressure Mean: 97 Departure Communication (Admissions) Chronic diarrhea currently on antibiotics. Abdomen soft, nontender. No fever chills, sweats, bloody stools. Patient with chronic hyponatremia with 3 point drop since last evening. Patient fatigue with failure to respond to supportive measures. Recommendations are for hospital admission to facility with nephrology and GI services. Patient declines. She is requesting discharge home and prefers to follow-up with her primary care provider on Wednesday. Patient's prior sodium levels range from 127 to 130. 1 L of normal saline given. Patient instructed to hold lisinopril. Return cautions reviewed. Patient verbalizes understanding and agreement discharge instructions prior to departure. Impression Primary Impression: Fatigue Additional Impressions: Hyponatremia Diarrhea Disposition: 01 HOME, SELF-CARE Condition: Stable Departure-Patient Inst. Referrals: HANY RODRIGUEZ MD (PCP) Primary Care Physician TEAGAN ROGER APRN (Family) Primary Care Physician Patient Instructions: Hyponatremia (DC) Add. Discharge Instructions: Please discontinue lisinopril and continue to hydrate with electrolyte balanced fluids and follow-up with your primary care provider and your GI provider on Wednesday for reevaluation and to recheck sodium level. In the meantime if you develop new or worsening symptoms, return to the ED. All discharge instructions reviewed with patient and/or family. Voiced understanding. PRISCILA KHANNA DO September 09, 2019 19:49
[2019-09-09 20:03] LABS: BUN/CREATININE RATIO 17; CALCIUM 9.8 MG/DL (8.5-10.1); CARBON DIOXIDE 23 MMOL/L (21-32); CHLORIDE 91 MMOL/L (98-107); CREATININE SERUM 0.65 MG/DL (0.60-1.30); GFR ESTIMATED > 60; GLUCOSE 101 MG/DL (70-105); MAGNESIUM 1.8 MG/DL (1.6-2.4); POTASSIUM 4.3 MMOL/L (3.6-5.0); SODIUM 126 MMOL/L (135-145)
[2019-09-09 20:04] LABS: ALANINE AMINOTRANSFERASE 13 U/L (0-55); ALBUMIN 3.9 GM/DL (3.2-4.5); ALKALINE PHOSPHATASE 82 U/L (40-136); BILIRUBIN,TOTAL 0.2 MG/DL (0.1-1.0); TOTAL PROTEIN 6.7 GM/DL (6.4-8.2)
[2019-09-09] MEDS ORDERED: NS IV 1000 ML 1,000 ML IV SCH (20:15)
[2019-09-09 20:51] VITALS: BP 132/78
== END 2019-09-09 20:51 | disposition home or self-care (01) ==
LOC: EDUNIT# 19:16 → ER FS 19:19
DX: R53.83 Other fatigue (principal); E87.1 Hypo-osmolality and hyponatremia; R19.7 Diarrhea, unspecified; I10 Essential (primary) hypertension; F17.210 Nicotine dependence, cigarettes, uncomplicated; Z88.0 Allergy status to penicillin; Z88.5 Allergy status to narcotic agent
CPT/HCPCS: 36415; 80053; 81000; 82550; 83735; 84443; 85025; 87088